=== PATIENT | female | born 1985 | race Caucasian/White ===

== ENCOUNTER 2016-09-01 21:27 | Emergency (ER) | payer SELFPAY ==
[2016-09-01 21:40] VITALS: TEMP 97.9
[2016-09-01] MEDS ORDERED: Sodium Chloride 0.9% 1,000 ML IV ONE (21:55)
[2016-09-01] MEDS ORDERED: Sodium Chloride 0.9% 1,000 ML ONE (22:03)
[2016-09-01 22:24] LABS: BASO % 0.4 % (0.0-2.0); EOS # 0.2 K/uL (0.0-0.7); EOS % 1.9 % (0.0-4.0); HEMATOCRIT 43.7 % (34.0-47.0); LYMPH # 4.3 K/uL (1.0-4.3); LYMPH % 46.7 % (20.0-40.0); MEAN CELL VOLUME 85.5 fL (81.0-99.0); MEAN CORPUSCULAR HEMOGLOBIN 28.5 pg (27.0-31.0); MEAN CORPUSCULAR HGB CONC 33.4 g/dL (33.0-37.0); MEAN PLATELET VOLUME 9.6 fL (7.2-11.7); MONO # 0.6 K/uL (0.0-0.8); MONO % 6.6 % (0.0-10.0); RED CELL DISTRIBUTION WIDTH 13.6 % (11.5-14.5); WHITE BLOOD COUNT 9.1 K/uL (4.8-10.8)
[2016-09-01 22:26] VITALS: PULSE 60; RESP 21; O2SAT 100
[2016-09-01 22:26] LABS: RBC URINE 2 /hpf (0-3); URINE BACTERIA RARE (<OCC); URINE BILIRUBIN NEGATIVE (NEGATIVE); URINE COLOR Yellow (YELLOW); URINE GLUCOSE (UA) NORMAL (Normal); URINE KETONE NEGATIVE (NEGATIVE); URINE LEUKOCYTE ESTERASE NEG Leu/uL (Negative); URINE PROTEIN NEGATIVE (NEGATIVE); URINE UROBILINOGEN NORMAL mg/dL (0.2-1.0); WBC URINE 1 /hpf (0-5)
[2016-09-01 22:27] LABS: URINE BLOOD NEGATIVE (NEGATIVE)
[2016-09-01 22:29] LABS: CHLORIDE 107 mmol/L (98-107)
[2016-09-01 22:30] LABS: POTASSIUM 3.6 mmol/L (3.6-5.2); SODIUM 139 mmol/L (132-148)
[2016-09-01 22:32] LABS: ALB/GLOB RATIO 1.4 (1.0-2.1); AST/SGOT 20 U/L (14-36); BILIRUBIN,TOTAL 0.5 mg/dL (0.2-1.3); BLOOD UREA NITROGEN 7 mg/dL (7-17); CARBON DIOXIDE 21 mmol/L (22-30); GFR AFRICAN-AMERICAN > 60; TOTAL PROTEIN 7.4 g/dL (6.3-8.3)
[2016-09-01 22:33] LABS: ALKALINE PHOSPHATASE 62 U/L (38-126); ALT/SGPT 21 U/L (9-52); CALCIUM 9.4 mg/dl (8.6-10.4); GLUCOSE,RANDOM 87 mg/dL (65-105)
[2016-09-01] MEDS ORDERED: Alum-Mag Hydrox-Simethicone Susp (30 mL) PO STA (22:35)
[2016-09-01] MEDS ORDERED: Aluminum Hydroxide/Magnesium Hydroxide Susp (30 mL) ONE (22:41)
--- NOTE | 2016-09-01 23:25 | C.PDOC ---
Time Seen by Provider: 09/01/16 21:47 Chief Complaint (Nursing): Abdominal Pain History Per: Patient Onset/Duration Of Symptoms: Hrs Current Symptoms Are (Timing): Still Present Severity: Moderate Location Of Pain/Discomfort: Epigastric Quality Of Discomfort: Unable To Describe, "Pain" Alleviating Factors: None Last Bowel Movement: Today Additional History Per: Prior Records Abnormal Vaginal Bleeding: No Past Medical History Reviewed: Historical Data, Nursing Documentation, Vital Signs Vital Signs: Last Vital Signs Temp 97.9 F 09/01/16 21:38 Pulse 60 09/01/16 22:24 Resp 21 09/01/16 22:24 BP 109/68 09/01/16 22:24 Pulse Ox 100 09/01/16 22:24 - Medical History PMH: Gastritis Surgical History: No Surg Hx Family History: States: Unknown Family Hx - Social History Hx Tobacco Use: No Hx Alcohol Use: No Hx Substance Use: No - Immunization History Hx Tetanus Toxoid Vaccination: No Hx Influenza Vaccination: No Hx Pneumococcal Vaccination: No Review Of Systems Except As Marked, All Systems Reviewed And Found Negative. Constitutional: Negative for: Fever, Weakness Cardiovascular: Negative for: Chest Pain Respiratory: Negative for: Shortness of Breath Gastrointestinal: Positive for: Abdominal Pain. Negative for: Vomiting, Diarrhea, Melena, Hematochezia, Hematemesis Genitourinary: Negative for: Dysuria Musculoskeletal: Negative for: Neck Pain Skin: Negative for: Rash Neurological: Negative for: Weakness, Numbness, Seizures, Altered Mental Status Physical Exam - Physical Exam Appears: Non-toxic, No Acute Distress Skin: Normal Color, Warm, Dry, No Rash Head: Atraumatic, Normacephalic Eye(s): bilateral: PERRL, EOMI Neck: Normal ROM, Supple Cardiovascular: Rhythm Regular Respiratory: Normal Breath Sounds, No Accessory Muscle Use Gastrointestinal/Abdominal: Soft, Tenderness (epigastric), No Distention, No Guarding, No Rebound Back: No CVA Tenderness Extremity: Normal ROM Neurological/Psych: Oriented x3, Normal Motor, Normal Sensation ED Course And Treatment - Laboratory Results Result Diagrams: 09/01/16 22:18 09/01/16 22:18 Lab Interpretation: No Acute Changes Urine POC: Negative O2 Sat by Pulse Oximetry: 100 Pulse Ox Interpretation: Normal Progress - Interventions Interventions:: Observation, Intravenous fluid - Medications Administered Oral: Antacid Intravenous: Antiemetic, H-2 sho - Data Reviewed Data Reviewed: Lab, Old records - Patient Status Patient status: Completely improved - Continuity of Care Discussed patient case with:: Patient, ED Nurse - Patient Plan Patient Plan: Discharge, F/U with PCP Disposition Counseled Patient/Family Regarding: Studies Performed, Diagnosis, Need For Followup, Rx Given - Disposition Referrals: [facility] [Outside] Disposition: HOME/ ROUTINE Disposition Time: 23:24 Condition: IMPROVED Additional Instructions: Follow up in the clinic for further evaluation and treatment. Return to the ER if you develop fever, vomiting, worsening of symptoms or if you have any other concerns. Prescriptions: Pantoprazole Sodium [Protonix] 40 mg PO DAILY #14 ect Instructions: Gastritis (ED) - Clinical Impression Clinical Impression: Abdominal pain
[2016-09-01 23:31] VITALS: BP 102/68
== END 2016-09-01 23:29 | disposition home or self-care (01) ==
LOC: C.ER 21:27
DX: R10.9 Unspecified abdominal pain (principal)
CPT/HCPCS: 80053; 81001; 83690; 84703; 85025; 96361; 96374; 96375; 99285; C9113; J2765; J7040

== ENCOUNTER 2017-06-06 10:58 | Emergency (ER) | payer OTHER ==
[2017-06-06] MEDS ORDERED: Sodium Chloride 0.9% 1,000 ML IV ONE (11:36)
--- NOTE | 2017-06-06 11:54 | C.PDOC ---
History Of Present Illness 31 y/o female , LNMP 12?, 13 wks , presents to ED for evaluation of diffuse low abdominal pressure pain since this morning associated with nausea and x1 episode of non-bilious vomiting. Patient admits, (+) pre rolando care for current , no abnormalities. Patient admits to some discomfort when urinating and low back pain since today AM. Otherwise, pt denies fever, chills, recent illness, sore throat, drooling, dysphagia, dyspnea , sob, chest pain, diarrhea, hematuria, vaginal bleeding or discharge. Ambulate to Ed, appears in some pain. Time Seen by Provider: 06/06/17 11:39 Chief Complaint (Nursing): Female Genitourinary History Per: Patient History/Exam Limitations: no limitations Onset/Duration Of Symptoms: Hrs Current Symptoms Are (Timing): Still Present Quality Of Discomfort: Pressure, "Pain" Associated Symptoms: Nausea, Vomiting, Urinary Symptoms. denies: Fever, Chills , Diarrhea Past Medical History Reviewed: Historical Data, Nursing Documentation, Vital Signs Vital Signs: Last Vital Signs Temp 98.2 F 06/06/17 11:18 Pulse 101 H 06/06/17 11:18 Resp 20 06/06/17 11:18 BP 121/79 06/06/17 11:18 Pulse Ox 96 06/06/17 14:18 - Medical History PMH: Gastritis Surgical History: No Surg Hx Family History: States: No Known Family Hx - Social History Hx Tobacco Use: No Hx Alcohol Use: No Hx Substance Use: No - Immunization History Hx Tetanus Toxoid Vaccination: No Hx Influenza Vaccination: No Hx Pneumococcal Vaccination: No Review Of Systems Constitutional: Negative for: Fever, Chills Cardiovascular: Negative for: Chest Pain Respiratory: Negative for: Shortness of Breath Gastrointestinal: Positive for: Nausea, Vomiting, Abdominal Pain Genitourinary: Negative for: Dysuria, Hematuria, Vaginal Discharge, Vaginal Bleeding Skin: Negative for: Rash Physical Exam - Physical Exam Appears: Non-toxic, No Acute Distress Skin: Warm, Dry, No Rash Head: Atraumatic, Normacephalic Oral Mucosa: Moist Neck: Normal ROM, Supple Cardiovascular: Rhythm Regular Respiratory: Normal Breath Sounds, No Rales, No Rhonchi, No Wheezing Gastrointestinal/Abdominal: Soft, No Tenderness, No Guarding, No Rebound Back: No CVA Tenderness Extremity: Normal ROM, Capillary Refill (<2 seconds) Neurological/Psych: Oriented x3, Normal Speech, Normal Cognition ED Course And Treatment - Laboratory Results Result Diagrams: 06/06/17 12:05 06/06/17 12:05 Lab Interpretation: No Acute Changes Urine POC: Positive O2 Sat by Pulse Oximetry: 96 (RA) Pulse Ox Interpretation: Normal - CT Scan/US US transvaginal Other Rad Studies (CT/US): Radiology Report Reviewed CT/US Interpretation: Report Date : 06/06/2017 13:37:13. My Comment : . PROCEDURE: OB Pelvic Ultrasound. HISTORY: /bleeding. COMPARISON: None available. FINDINGS: UTERUS: Single Live intrauterine gestation. CRL equivalent to 13 weeks 2 days gestatioin. Fetus in breech presentation. Posterior placenta noted. age (Ultrasound estimated): 13 weeks 2 days. Date of delivery (Ultrasound estimated) : 12/10/2017. Heart rate: 161 bpm. [place]-gestational hemorrhage: Small subchorionic hemorrhage, measuring approximately 0.8 x 2.8 x 2.4 cm. CERVIX: Long and closed. No cervical abnormality seen. RIGHT OVARY: Measures 3.7 x 2.4 x 3.9 cm. No mass. Normal flow. LEFT OVARY: Measures 3.2 x 2.5 x 3.8 cm. No mass. Normal flow. FREE FLUID: None. OTHER FINDINGS: None. IMPRESSION: Single live intrauterine gestation of approximately 13 weeks 2 days. heart rate 161. Breech presentation. Posterior placenta. Small subchorionic hemorrhage. Cervix long and closed. Progress Note: At 13:02, pt still c/o mod diffuse lower abd. pain. Risk vs benefits of pain medictaion in discussed with pt. Pt was given tylenol without improveemnt in pain. Pt is asking for " stronger medication". Morphine 2 mg IV order per pt permission. Blood work review and appears normal. UA (+) UTI. US results review and c/w single IUP, 13 wks, (+) HR, (-) acute findings. Beta quant c/w EGA. Results review and discussed with patient. On re-eval, pt is afebrile, hemodynamicaly stable. Non-toxic. AMbulatory in ED with stable gait. ENT: no acute findings. Lungs: CTA B/L, BS equal B/L. Abd: benign. back: (-) CVA tenderness. Pt has clinical findings c/ w lower abdominal pain r/o UTI, r/o threated miscarriage. Pt advised and ref. to f/u with OB ib 2-3 days for re-eavl. return if any new changes. Disposition Counseled Patient/Family Regarding: Studies Performed, Diagnosis, Need For Followup, Rx Given - [facility]position [facility] Disposition: HOME/ ROUTINE Disposition Time: 13:35 Condition: STABLE Additional Instructions: PELVIC REST, AVOID SEXUAL ACTIVITY FOR 1 WEEK TAKE MEDICATION PRESCRIBED FOLLOW UP WITH OB IN 2 DAYS FOR RE-EVALUATION. RETURN TO ed IF ANY WORSENING OR NEW CHANGES. Prescriptions: Doxylamine Succinate [Wal-Deshaun] 25 mg PO BID #7 tablet Nitrofurantoin Macrocrystals [Macrobid] 1 cap PO BID #14 cap Instructions: Threatened Miscarriage, Urinary Tract Infection, Adult (DC) Forms: [employer] (Liberian) Print Language: SWEDISH - Clinical Impression Clinical Impression: UTI (lower urinary tract infection), Threatened - PA / BIOLOGY INSTRUCTOR / Resident Statement MD/DO has reviewed & agrees with the documentation as recorded. - Scribe Statement The provider has reviewed the documentation as recorded by the Cassandra Oconnell All medical record entries made by the Cassandra were at my direction and personally dictated by me. I have reviewed the chart and agree that the record accurately reflects my personal performance of the history, physical exam, medical decision making, and the department course for this patient. I have also personally directed, reviewed, and agree with the discharge instructions and disposition.
[2017-06-06 12:18] LABS: BASO % 0.4 % (0.0-2.0); EOS # 0.1 K/uL (0.0-0.7); HEMOGLOBIN 13.9 g/dL (11.0-16.0); LYMPH # 3.6 K/uL (1.0-4.3); LYMPH % 28.3 % (20.0-40.0); MEAN CELL VOLUME 86.4 fL (81.0-99.0); MEAN CORPUSCULAR HEMOGLOBIN 29.2 pg (27.0-31.0); MEAN CORPUSCULAR HGB CONC 33.8 g/dL (33.0-37.0); MEAN PLATELET VOLUME 9.2 fL (7.2-11.7); MONO # 0.7 K/uL (0.0-0.8); MONO % 5.2 % (0.0-10.0); NEUT # 8.2 K/uL (1.8-7.0); NEUT % 65.1 % (50.0-75.0); RBC 4.75 Mil/uL (3.80-5.20); WHITE BLOOD COUNT 12.6 K/uL (4.8-10.8)
[2017-06-06 12:25] LABS: HCG,QUALITATIVE URINE POSITIVE (NEGATIVE)
[2017-06-06 12:31] LABS: URINE BILIRUBIN NEGATIVE (NEGATIVE); URINE BLOOD 3+ (NEGATIVE); URINE CLARITY Hazy (Clear); URINE COLOR Yellow (YELLOW); URINE GLUCOSE (UA) 1+ mg/dL (Normal); URINE LEUKOCYTE ESTERASE 3+ Leu/uL (Negative); URINE PROTEIN 2+ mg/dL (NEGATIVE); URINE UROBILINOGEN NORMAL mg/dL (0.2-1.0)
[2017-06-06 12:36] LABS: ALB/GLOB RATIO 1.1 (1.0-2.1); ALBUMIN 3.9 g/dL (3.5-5.0); ALT/SGPT 58 U/L (9-52); AST/SGOT 44 U/L (14-36); BLOOD UREA NITROGEN 4 mg/dL (7-17); CALCIUM 9.4 mg/dl (8.6-10.4); GFR AFRICAN-AMERICAN > 60; GFR NON-AFRICAN AMERICAN > 60
[2017-06-06 12:40] LABS: SQUAMOUS EPITHIAL 8 /hpf (0-5); URINE BACTERIA FEW (<OCC)
[2017-06-06] MEDS ORDERED: cefTRIAXone IV 1 gm in Dextros 50 ML IVPB ONE (13:02)
[2017-06-06] MEDS ORDERED: Sodium Chloride 0.9% 1,000 ML ONE (13:03)
--- NOTE | 2017-06-06 13:38 | US ---
PROCEDURE: OB Pelvic Ultrasound HISTORY: /bleeding COMPARISON: None available. FINDINGS: UTERUS: Single Live intrauterine gestation. CRL equivalent to 13 weeks 2 days gestatioin Fetus in breech presentation. Posterior placenta noted. age (Ultrasound estimated): 13 weeks 2 days Date of delivery (Ultrasound estimated) : 12/10/2017 Heart rate: 161 bpm. [place]-gestational hemorrhage: Small subchorionic hemorrhage, measuring approximately 0.8 x 2.8 x 2.4 cm. CERVIX: Long and closed. No cervical abnormality seen. RIGHT OVARY: Measures 3.7 x 2.4 x 3.9 cm. No mass. Normal flow. LEFT OVARY: Measures 3.2 x 2.5 x 3.8 cm. No mass. Normal flow. FREE FLUID: None. OTHER FINDINGS: None. IMPRESSION: Single live intrauterine gestation of approximately 13 weeks 2 days. heart rate 161. Breech presentation. Posterior placenta. Small subchorionic hemorrhage. Cervix long and closed.
[2017-06-06] MEDS ORDERED: Morphine 4 MG/ML VIAL ONE (14:45)
[2017-06-06 15:27] VITALS: BP 111/77; PULSE 96; RESP 15; TEMP 98; O2SAT 98
== END 2017-06-06 16:14 | disposition home or self-care (01) ==
LOC: C.ER 10:58
DX: O23.41 Unspecified infection of urinary tract in pregnancy, first trimester (principal); O20.0 Threatened abortion; Z3A.13 13 weeks gestation of pregnancy
CPT/HCPCS: 76801; 80053; 81001; 84702; 84703; 85025; 86850; 86900; 87086; 96365; 96375; 99284; J0696; J2270; J2405; J7040

== ENCOUNTER 2017-06-08 01:50 | Inpatient (IN) | payer OTHER ==
[2017-06-08] MEDS ORDERED: Sodium Chloride 0.9% 1,000 ML IV ONE (02:16)
[2017-06-08] MEDS ORDERED: Acetaminophen-Codeine 300/30 mg Tab PO STA (02:18)
[2017-06-08] MEDS ORDERED: Sodium Chloride 0.9% 1,000 ML ONE (02:22)
--- NOTE | 2017-06-08 02:32 | C.PDOC ---
History Of Present Illness 31 y/o female , LNMP 03/04/17 and 13 weeks , presents to ED for evaluation of right sided abdominal pain for 2 days associated with nausea. She states pain started in lower abdomen, but also is radiating to RUQ and back. Patient states she was seen in ED, and is taking antibiotic and Tylenol 650mg 2- 3 times a day without significant improvement. She reports no bowel movement for 3 days. Denies fever, chills, chest pain, hematuria, vaginal bleeding or discharge. Time Seen by Provider: 06/08/17 02:06 Chief Complaint (Nursing): Abdominal Pain History Per: Patient History/Exam Limitations: no limitations Onset/Duration Of Symptoms: Days (2) Current Symptoms Are (Timing): Still Present Location Of Pain/Discomfort: Other (Right sided) Radiation Of Pain To:: Back, Other (RUQ) Quality Of Discomfort: "Pain" Associated Symptoms: Nausea. denies: Fever, Chills, Chest Pain, Urinary Symptoms Exacerbating Factors: None Alleviating Factors: None Last Bowel Movement: Days Ago (3) Recent travel outside of the [place]: No Abnormal Vaginal Bleeding: No Last Menstral Period: 03/04/17 : 3 Para: 2 Past Medical History Reviewed: Historical Data, Nursing Documentation, Vital Signs Vital Signs: Last Vital Signs Temp 98.2 F 06/08/17 02:08 Pulse 73 06/08/17 06:40 Resp 24 06/08/17 06:40 BP 112/69 06/08/17 06:40 Pulse Ox 98 06/08/17 06:40 - Medical History PMH: Gastritis Family History: States: Unknown Family Hx - Social History Hx Tobacco Use: No Hx Alcohol Use: No Hx Substance Use: No - Immunization History Hx Tetanus Toxoid Vaccination: No Hx Influenza Vaccination: No Hx Pneumococcal Vaccination: No Review Of Systems Constitutional: Negative for: Fever, Chills Cardiovascular: Negative for: Chest Pain Gastrointestinal: Positive for: Nausea, Abdominal Pain (right sided radiates to RUQ and back), Other (no bowel movement for 3 days). Negative for: Vomiting Genitourinary: Negative for: Hematuria, Vaginal Discharge, Vaginal Bleeding Neurological: Negative for: Weakness, Numbness Physical Exam - Physical Exam Appears: Non-toxic, Other (Uncomfortable) Skin: Normal Color, Warm, Dry Head: Atraumatic, Normacephalic Eye(s): bilateral: Normal Inspection Oral Mucosa: Moist Neck: Supple Chest: Symmetrical, No Tenderness Cardiovascular: Rhythm Regular Respiratory: Normal Breath Sounds, No Decreased Breath Sounds, No Rales, No Rhonchi, No Wheezing Gastrointestinal/Abdominal: Soft, Tenderness (RUQ) Neurological/Psych: Oriented x3, Normal Speech, Normal Cognition ED Course And Treatment - Laboratory Results Result Diagrams: 06/08/17 02:45 06/08/17 02:45 Lab Interpretation: Abnormal O2 Sat by Pulse Oximetry: 99 (RA) Pulse Ox Interpretation: Normal - CT Scan/US 1st Trimester US Other Rad Studies (CT/US): Read By Radiologist, Radiology Report Reviewed CT/US Interpretation: EXAM: US First Trimester, Transabdominal. CLINICAL HISTORY: 31 years old, female; Pain; complicated by abdominal or pelvic pain; Upper; First. trimester; Gestational age or lmp: ; ; Additional info: Right side abd pain, preg, no. bleeding. TECHNIQUE: Real-time transabdominal obstetrical ultrasound of the maternal pelvis and a first trimester. with image documentation. COMPARISON: No relevant prior studies available. FINDINGS: Gestation: Single live intrauterine gestation. heart rate of 135 beats per minute. [place]-rump. length of 7.3 cm, correlating with gestational age of 13 weeks 3 days. Placenta /amniotic fluid: Posterior, low-lying placenta. No placental abruption. Normal amniotic fluid. Uterus/cervix: 1.3 x 0.6 x 1.9 cm collection along gestational sac. No cervical dilatation or. effacement. Ovaries: Normal ovaries. No adnexal masses. Free fluid: No significant free fluid. IMPRESSION: 1. Single live intrauterine gestation. [facility]. [facility]. Final Radiology Report [id number]. Name: YENNY KHALIL Age: 31Years F Date: 06/08/2017. SSN: [id number] : 1985. Study: US TRANSABD FIRST TRIMESTER FIRST GEST Requesting Physician: Leyla Uribe. Images: 58. Addl Studies: Provided Clinical History: right side abd pain, preg, no bleeding. CONFIDENTIALITY STATEMENT. This transmission is confidential and is intended to be a privileged communication. It is intended only for the use of the addressee. Access to this. message by anyone else is unauthorized. If you are not the intended recipient, any disclosure, copying, distribution or any action taken, or omitted to. be taken in reliance on it is prohibited and may be unlawful. If you received this communication in error, please notify us by telephone, so that return. of this document to us can be arranged. Page 2 of 2. 2. Subchorionic hemorrhage. 3. Incidental/non-acute findings are described above. Thank you for allowing us to participate in the care of your patient. Dictated and Authenticated by: Jack Garcia MD. 06/08/2017 5:35 AM Eastern Time ([place] & [place]) US Abdomen Other Rad Studies (CT/US): Read By Radiologist, Radiology Report Reviewed CT/US Interpretation: EXAM: US Abdomen Complete. CLINICAL HISTORY: 31 years old, female; Pain; Abdominal pain; Epigastric; ; Additional info: Ruq abd pain. TECHNIQUE: Real-time ultrasound of the abdomen (complete) with image documentation. COMPARISON: No relevant prior studies available. FINDINGS: Liver: Fatty infiltration. No mass. No intrahepatic ductal dilatation. Gallbladder: Gallstones. No wall thickening. No pericholecystic fluid. No sonographic Morales's. sign. Common bile duct: No dilatation. No stones. Pancreas: Unremarkable as visualized. Kidneys: Normal echogenicity. Mild pelvocaliectasis of RIGHT kidney. Mild pelviectasis of LEFT. kidney. Spleen: No splenomegaly. Aorta: Unremarkable. No aneurysm. Inferior vena cava : Unremarkable. Free fluid: No significant free fluid. IMPRESSION: 1. Cholelithiasis. 2. Mild pelvocaliectasis of RIGHT kidney. [facility]. [facility]. Final Radiology Report [id number]. Name: YENNY KHALIL Age: 31Years F Date: 06/08/2017. SSN: [id number] : . Study: US ABDOMEN COMPLETE Requesting Physician: Leyla Uribe. Images: 62. Addl Studies: Provided Clinical History : RUQ abd pain. CONFIDENTIALITY STATEMENT. This transmission is confidential and is intended to be a privileged communication. It is intended only for the use of the addressee. Access to this. message by anyone else is unauthorized. If you are not the intended recipient, any disclosure, copying, distribution or any action taken, or omitted to. be taken in reliance on it is prohibited and may be unlawful. If you received this communication in error, please notify us by telephone, so that return. of this document to us can be arranged. Page 2 of 2. 3. Mild pelviectasis of LEFT kidney. 4. Incidental/non-acute findings are described above. Thank you for allowing us to participate in the care of your patient. Dictated and Authenticated by: Jack Garcia MD. 06/08/2017 5: 38 AM Eastern Time ([place] & [place] Medical Decision Making Medical Decision Making: Impression: Abdominal pain Prior records reviewed patient seen in ED 06/06 with normal labs and US showed: Single live intrauterine gestation of approximately 13 weeks 2 days. heart rate 161. Breech presentation. Posterior placenta. Small subchorionic hemorrhage. Cervix long and closed. Plan: * Labs * US * IV NS, Tylenol #3 Progress: Labs show increase in WBC 14, LFTs, urine better, US shows Cholelithiasis Discussed case with ER attending who examined patient and agrees with treatment plan thus far, and to consult surgery Patient is still complaining of pain additional morphine ordered [address] Arambula Spoke with surgical services asst [facility] who will come to evaluate patient and wants patient admitted to medical service [address] Carranza who requests to speak specifically with surgeon before he will evaluate patient 06 spoke with OB yard person Dr Alcantara who will see patient as consult, and to admit to medical service. [address] Callejas to contact hospitalist. Dr Callejas spoke with hospitalist and discussed case. Dr Carranza insists to hear back from surgeon before admitting to his service, and conclude if patient is going for surgery 06 Dr Arambula calls ED and case was discussed including labs and US results. He states patient is not surgical case at this time. Recommends analgesics, observation, and will see as consult [address] Carranza who accepts patient to service Disposition - Disposition Disposition: HOSPITALIZED Disposition Time: 06:20 Condition: STABLE - POA Present On Arrival: None - Clinical Impression Clinical Impression: Cholelithiasis, and not yet delivered in second trimester - PA / STAGE SETTING PAINTER APPRENTICE / Resident Statement MD/DO has reviewed & agrees with the documentation as recorded. - Scribe Statement The provider has reviewed the documentation as recorded by the Scribe Kip Waldrop All medical record entries made by the Duaneibe were at my direction and personally dictated by me. I have reviewed the chart and agree that the record accurately reflects my personal performance of the history, physical exam, medical decision making, and the department course for this patient. I have also personally directed, reviewed, and agree with the discharge instructions and disposition. Decision To Admit - Pt Status Changed To: Hospital Disposition Of: Observation - . Bed Request Type: Regular Admitting Physician: Devan Carranza Patient Diagnosis: Cholelithiasis, and not yet delivered in second trimester
[2017-06-08 02:49] LABS: HCG,QUALITATIVE URINE POSITIVE (NEGATIVE)
[2017-06-08 02:50] LABS: BASO # 0.2 K/uL (0.0-0.2); BASO % 1.6 % (0.0-2.0); EOS # 0.1 K/uL (0.0-0.7); EOS % 0.4 % (0.0-4.0); HEMOGLOBIN 12.7 g/dL (11.0-16.0); LYMPH # 1.9 K/uL (1.0-4.3); LYMPH % 13.2 % (20.0-40.0); MEAN CORPUSCULAR HEMOGLOBIN 29.1 pg (27.0-31.0); MEAN CORPUSCULAR HGB CONC 33.9 g/dL (33.0-37.0); MEAN PLATELET VOLUME 9.2 fL (7.2-11.7); MONO % 7.2 % (0.0-10.0); NEUT # 11.2 K/uL (1.8-7.0); NEUT % 77.6 % (50.0-75.0); RBC 4.36 Mil/uL (3.80-5.20); RED CELL DISTRIBUTION WIDTH 13.7 % (11.5-14.5); WHITE BLOOD COUNT 14.4 K/uL (4.8-10.8)
[2017-06-08] MEDS ORDERED: Morphine 4 MG/ML VIAL ONE ×2 (02:53→05:50)
[2017-06-08 02:56] LABS: SQUAMOUS EPITHIAL 1 /hpf (0-5); URINE BILIRUBIN NEGATIVE (NEGATIVE); URINE BLOOD NEGATIVE (NEGATIVE); URINE CLARITY Hazy (Clear); URINE COLOR Yellow (YELLOW); URINE GLUCOSE (UA) NORMAL (Normal); URINE LEUKOCYTE ESTERASE NEG Leu/uL (Negative); URINE PROTEIN NEGATIVE (NEGATIVE); URINE UROBILINOGEN NORMAL mg/dL (0.2-1.0)
[2017-06-08 03:33] LABS: ALBUMIN 3.6 g/dL (3.5-5.0); ALT/SGPT 57 U/L (9-52); AMYLASE 83 U/L (30-110); AST/SGOT 33 U/L (14-36); BLOOD UREA NITROGEN 5 mg/dL (7-17); GFR AFRICAN-AMERICAN > 60; GFR NON-AFRICAN AMERICAN > 60; LIPASE 71 U/L (23-300)
--- NOTE | 2017-06-08 05:36 | US ---
EXAM: US First Trimester, Transabdominal CLINICAL HISTORY: 31 years old, female; Pain; complicated by abdominal or pelvic pain; Upper; First trimester; Gestational age or lmp: 03/04/2017; ; Additional info: Right side abd pain, preg, no bleeding TECHNIQUE: Real-time transabdominal obstetrical ultrasound of the maternal pelvis and a first trimester with image documentation. COMPARISON: No relevant prior studies available. FINDINGS: Gestation: Single live intrauterine gestation. heart rate of 135 beats per minute. [place]-rump length of 7.3 cm, correlating with gestational age of 13 weeks 3 days. Placenta/amniotic fluid: Posterior, low-lying placenta. No placental abruption. Normal amniotic fluid. Uterus/cervix: 1.3 x 0.6 x 1.9 cm collection along gestational sac. No cervical dilatation or effacement. Ovaries: Normal ovaries. No adnexal masses. Free fluid: No significant free fluid. IMPRESSION: 1. Single live intrauterine gestation. 2. Subchorionic hemorrhage. 3. Incidental/non-acute findings are described above.
--- NOTE | 2017-06-08 05:38 | US ---
EXAM: US Abdomen Complete CLINICAL HISTORY: 31 years old, female; Pain; Abdominal pain; Epigastric; ; Additional info: Ruq abd pain TECHNIQUE: Real-time ultrasound of the abdomen (complete) with image documentation. COMPARISON: No relevant prior studies available. FINDINGS: Liver: Fatty infiltration. No mass. No intrahepatic ductal dilatation. Gallbladder: Gallstones. No wall thickening. No pericholecystic fluid. No sonographic Morales's sign. Common bile duct: No dilatation. No stones. Pancreas: Unremarkable as visualized. Kidneys: Normal echogenicity. Mild pelvocaliectasis of RIGHT kidney. Mild pelviectasis of LEFT kidney. Spleen: No splenomegaly. Aorta: Unremarkable. No aneurysm. Inferior vena cava: Unremarkable. Free fluid: No significant free fluid. IMPRESSION: 1. Cholelithiasis. 2. Mild pelvocaliectasis of RIGHT kidney. 3. Mild pelviectasis of LEFT kidney. 4. Incidental/non-acute findings are described above.
--- NOTE | 2017-06-08 06:32 | CP.PCM.CON ---
Addendum entered and electronically signed by Prudencio Asencio DO 06/08/17 06: 40: changed to Zosyn since unasyn is not formulary here GI consult with Dr Pandya as per Dr Arambula Original Note: <ElifPrudencio Azeem - Last Filed: 06/08/17 06:29> History of Present Illness - History of Present Illness History of Present Illness: General Surgery: Dr Arambula Pt is a 31F, 13 weeks , with PMH of gastritis. Pt presents to ED with 2 days of RUQ pain accompanied by nausea and vomiting. Pt states pain has been mainly RUQ, but radiates to the back and right shoulder. Her emesis has been yellow in color, with minimal streaks of blood. Denies any fevers, chills, changes in bowel habits, dysuria, sob or chest pain. Her has been otherwise uncomplicated. Pt reports has been taking vitamins. PMH: gastritis PSH: none Social: no EtOH, no tobacco Review of Systems - Review of Systems All systems: reviewed and no additional remarkable complaints except (as per hpi ) Past Patient History - Infectious Disease Hx of Infectious Diseases: None - Past Social History Smoking Status: Never Smoked - CARDIAC Hx Cardiac Disorders: No - PULMONARY Hx Respiratory Disorders: No - NEUROLOGICAL Hx Neurological Disorder: No - HEENT Hx HEENT Problems: No - RENAL Hx Chronic Kidney Disease: No - ENDOCRINE/METABOLIC Hx Endocrine Disorders: No - HEMATOLOGICAL/ONCOLOGICAL Hx Blood Disorders: No Hx AIDS: No - INTEGUMENTARY Hx Dermatological Problems: No - MUSCULOSKELETAL/RHEUMATOLOGICAL Hx Musculoskeletal Disorders: No - GASTROINTESTINAL Hx Gastritis: Yes - GENITOURINARY/GYNECOLOGICAL Hx Genitourinary Disorders: No - PSYCHIATRIC Hx Substance Use: No - SURGICAL HISTORY Hx Surgeries: No - ANESTHESIA Hx Anesthesia: No Meds Allergies/Adverse Reactions: Allergies Allergy/AdvReac Type Severity Reaction Status Date / Time No Known Allergies Allergy Verified 06/06/17 11:21 Physical Exam - Constitutional Appears: Non-toxic, No Acute Distress - Eye Exam Eye Exam: Normal appearance - ENT Exam ENT Exam: Mucous Membranes Moist - Respiratory Exam Respiratory Exam: absent: Accessory Muscle Use, Respiratory Distress - Cardiovascular Exam Cardiovascular Exam: REGULAR RHYTHM - GI/Abdominal Exam GI & Abdominal Exam: Soft, Tenderness (RUQ > RLQ). absent: Distended, Firm, Guarding, Hernia - Neurological Exam Neurological exam: Alert, Oriented x3 - Psychiatric Exam Psychiatric exam: Normal Affect, Normal Mood Results - Vital Signs Recent Vital Signs: Last Vital Signs Temp 98.2 F 06/08/17 02:08 Pulse 73 06/08/17 05:45 Resp 24 06/08/17 05:45 BP 110/72 06/08/17 05:45 Pulse Ox 99 06/08/17 06:28 - Labs Result Diagrams: 06/08/17 02:45 06/08/17 02:45 Labs: Laboratory Results - last 24 hr 06/08/17 06/08/17 06/08/17 02:45 02:45 02:45 WBC 14.4 H RBC 4.36 Hgb 12.7 Hct 37.5 MCV 86.0 MCH 29.1 MCHC 33.9 RDW 13.7 Plt Count 214 MPV 9.2 Neut % (Auto) 77.6 H Lymph % (Auto) 13.2 L [place] % (Auto) 7.2 Eos % (Auto) 0.4 Baso % (Auto) 1.6 Neut # (Auto) 11.2 H Lymph # (Auto) 1.9 [place] # (Auto) 1.0 H Eos # (Auto) 0.1 Baso # (Auto) 0.2 Sodium 135 Potassium 3.2 L Chloride 101 Carbon Dioxide 23 Anion Gap 14 BUN 5 L Creatinine 0.6 L Est GFR ( Amer) > 60 Est GFR (Non-Af Amer) > 60 Random Glucose 101 Calcium 9.0 Total Bilirubin 0.4 AST 33 ALT 57 H Alkaline Phosphatase 49 Total Protein 7.0 Albumin 3.6 Globulin 3.4 Albumin/Globulin Ratio 1.0 Amylase 83 Lipase 71 Urine Color Yellow Urine Clarity Hazy Urine pH 6.0 Ur Specific [place] 1.014 Urine Protein Negative Urine Glucose (UA) Normal Urine Ketones Negative Urine Blood Negative Urine Nitrate Negative Urine Bilirubin Negative Urine Urobilinogen Normal Ur Leukocyte Esterase Neg Urine WBC (Auto) 1 Urine RBC (Auto) 2 Ur Squamous Epith Cells 1 Urine HCG, Qual Positive Assessment & Plan - Assessment and Plan (Free Text) Assessment: 31F 13wks with RUQ pain Plan: admit to medicine or OBGYN will treat conservatively unasyn NPO for now will d/w Dr Ralf Asencio, PGY3 <Imtiaz Arambula - Last Filed: 06/09/17 16:10> Meds - Medications Medications: Current Medications Famotidine (Pepcid) 20 mg IVP DAILY REPLACED BY [facility] Last Admin: 06/09/17 09:10 Dose: 20 mg Piperacillin Sod/Tazobactam Sod (Zosyn 2.25 Gm Iv Premix) 2.25 gm in 50 mls @ 100 mls/hr IVPB Q6H REPLACED BY [facility] PRN Reason: Protocol Last Admin: 06/09/17 12:14 Dose: 100 mls/hr Lactated Ringer's (Lactated Ringer's) 1,000 mls @ 100 mls/hr IV .Q10H REPLACED BY [facility] Last Admin: 06/09/17 13:01 Dose: Not Given Folic Acid 1 mg/ Sodium (Chloride) 100.2 mls @ 60 mls/hr IVPB DAILY REPLACED BY [facility] Last Admin: 06/09/17 09:42 Dose: 60 mls/hr Lactobacillus Acidophilus (Bacid Acidophilus) 1 cap PO BID REPLACED BY [facility] Last Admin: 06/09/17 09:10 Dose: 1 cap Morphine Sulfate (Morphine) 1 mg IV Q6 PRN PRN Reason: Pain, moderate (4-7) Last Admin: 06/09/17 01:46 Dose: 1 mg Morphine Sulfate (Morphine) 2 mg IV Q6 PRN PRN Reason: Pain, severe (8-10) Last Admin: 06/08/17 22:36 Dose: 2 mg Ondansetron HCl (Zofran Inj) 4 mg IVP Q6H PRN PRN Reason: Nausea/Vomiting Last Admin: 06/09/17 04:06 Dose: 4 mg Multivit/Folic Acid/Iron () 1 tab PO DAILY REPLACED BY [facility] Last Admin: 06/09/17 09:10 Dose: 1 tab Results - Vital Signs Recent Vital Signs: Last Vital Signs Temp 97.6 F 06/09/17 08:04 Pulse 69 06/09/17 08:04 Resp 20 06/09/17 08:04 BP 103/68 06/09/17 08:04 Pulse Ox 97 06/09/17 08:04 - Labs Result Diagrams: 06/09/17 08:17 06/09/17 08:17 Labs: Laboratory Results - last 24 hr 06/09/17 06/09/17 08:17 08:17 WBC 10.6 RBC 4.03 Hgb 12.1 Hct 34.8 MCV 86.5 MCH 30.0 MCHC 34.7 RDW 14.0 Plt Count 205 MPV 9.2 Neut % (Auto) 74.5 Lymph % (Auto) 17.4 L [place] % (Auto) 7.3 Eos % (Auto) 0.7 Baso % (Auto) 0.1 Neut # (Auto) 7.9 H Lymph # (Auto) 1.8 [place] # (Auto) 0.8 Eos # (Auto) 0.1 Baso # (Auto) 0.0 Sodium 135 Potassium 3.1 L Chloride 98 Carbon Dioxide 25 Anion Gap 15 BUN 6 L Creatinine 0.8 Est GFR ( Amer) > 60 Est GFR (Non-Af Amer) > 60 Random Glucose 73 Calcium 8.5 L Phosphorus 3.7 Magnesium 1.9 Total Bilirubin 1.4 H AST 34 ALT 46 Alkaline Phosphatase 55 Total Protein 6.5 Albumin 3.2 L Globulin 3.4 Albumin/Globulin Ratio 0.9 L Attending/Attestation - Attestation I have personally seen and examined this patient.: Yes I have fully participated in the care of the patient.: Yes I have reviewed all pertinent clinical information: Yes Notes (Text): Pt was seen and examined at bedside Agree with above note and assessment Pt with IUP 13 wk with abdominal Pain and Gallstones Right flank tenderness Labs and radiology reviewed Ass: IUP 13 week with Gallstones Plan : Get MRI of abdomen IV antibiotics c.w current mx Plan d/w pt in detail Risk and benefit explained in detail.
--- NOTE | 2017-06-08 07:31 | CP.PCM.CON ---
History of Present Illness - History of Present Illness History of Present Illness: 31yo lmp12/18 @ 13+wks by lmp confirmed by us today presents w/ c/o RUQ pain. Pt states pain begins in RUQ and radiates inferiorly. She states she has not eaten and had n/v throughout the day on . She states on Saturday she had 1 episode of emesis. She had initially presented to on and was advised she had a uti and sent home on rx. [facility] severity of [facility]. She has a h/o Gastritis and has been intermittently compliant with diet. She denies vag bleeding, cramping. She receives her pnc from [facility] and is taking pnv. pmhx:gastritis obhx: x2 nkda shx: denies etoh, illicit drugs or tobacco use medic: pnv pshx: denies Past Patient History - Infectious Disease Hx of Infectious Diseases: None - Past Social History Smoking Status: Never Smoked - CARDIAC Hx Cardiac Disorders: No - PULMONARY Hx Respiratory Disorders: No - NEUROLOGICAL Hx Neurological Disorder: No - HEENT Hx HEENT Problems: No - RENAL Hx Chronic Kidney Disease: No - ENDOCRINE/METABOLIC Hx Endocrine Disorders: No - HEMATOLOGICAL/ONCOLOGICAL Hx Blood Disorders: No Hx AIDS: No - INTEGUMENTARY Hx Dermatological Problems: No - MUSCULOSKELETAL/RHEUMATOLOGICAL Hx Musculoskeletal Disorders: No - GASTROINTESTINAL Hx Gastritis: Yes - GENITOURINARY/GYNECOLOGICAL Hx Genitourinary Disorders: No - PSYCHIATRIC Hx Substance Use: No - SURGICAL HISTORY Hx Surgeries: No - ANESTHESIA Hx Anesthesia: No Meds Allergies/Adverse Reactions: Allergies Allergy/AdvReac Type Severity Reaction Status Date / Time No Known Allergies Allergy Verified 06/06/17 11:21 - Medications Medications: Current Medications Piperacillin Sod/Tazobactam Sod (Zosyn 2.25 Gm Iv Premix) 2.25 gm in 50 mls @ 100 mls/hr IVPB Q6H [facility] PRN Reason: Protocol Lactated Ringer's (Lactated Ringer's) 1,000 mls @ 100 mls/hr IV .Q10H [facility] Physical Exam - Constitutional Appears: Non-toxic - Head Exam Head Exam: ATRAUMATIC, NORMOCEPHALIC - Respiratory Exam Respiratory Exam: NORMAL BREATHING PATTERN - GI/Abdominal Exam GI & Abdominal Exam: Soft, Tenderness (in ruq). absent: Distended Results - Vital Signs Recent Vital Signs: Last Vital Signs Temp 98.2 F 06/08/17 02:08 Pulse 73 06/08/17 06:40 Resp 24 06/08/17 06:40 BP 112/69 06/08/17 06:40 Pulse Ox 99 06/08/17 06:44 - Labs Result Diagrams: 06/08/17 02:45 06/08/17 02:45 Labs: Laboratory Results - last 24 hr 06/08/17 06/08/17 06/08/17 02:45 02:45 02:45 WBC 14.4 H RBC 4.36 Hgb 12.7 Hct 37.5 MCV 86.0 MCH 29.1 MCHC 33.9 RDW 13.7 Plt Count 214 MPV 9.2 Neut % (Auto) 77.6 H Lymph % (Auto) 13.2 L [place] % (Auto) 7.2 Eos % (Auto) 0.4 Baso % (Auto) 1.6 Neut # (Auto) 11.2 H Lymph # (Auto) 1.9 [place] # (Auto) 1.0 H Eos # (Auto) 0.1 Baso # (Auto) 0.2 Sodium 135 Potassium 3.2 L Chloride 101 Carbon Dioxide 23 Anion Gap 14 BUN 5 L Creatinine 0.6 L Est GFR ( Amer) > 60 Est GFR (Non-Af Amer) > 60 Random Glucose 101 Calcium 9.0 Total Bilirubin 0.4 AST 33 ALT 57 H Alkaline Phosphatase 49 Total Protein 7.0 Albumin 3.6 Globulin 3.4 Albumin/Globulin Ratio 1.0 Amylase 83 Lipase 71 Urine Color Yellow Urine Clarity Hazy Urine pH 6.0 Ur Specific [place] 1.014 Urine Protein Negative Urine Glucose (UA) Normal Urine Ketones Negative Urine Blood Negative Urine Nitrate Negative Urine Bilirubin Negative Urine Urobilinogen Normal Ur Leukocyte Esterase Neg Urine WBC (Auto) 1 Urine RBC (Auto) 2 Ur Squamous Epith Cells 1 Urine HCG, Qual Positive Assessment & Plan - Assessment and Plan (Free Text) Assessment: I: 13wk preg Cholelithiasis P: pt admitted to medical service. supportive care per medicine service pending pissible surgery on Unasyn, recommend probiotic
[2017-06-08] MEDS: Lactated Ringer's 1,000 ML IV SCH ×3 (07:49→22:35)
--- NOTE | 2017-06-08 08:08 | CP.PCM.HP ---
<Lyle Paulino - Last Filed: 06/08/17 18:19> History of Present Illness - History of Present Illness History of Present Illness: Code status: Full code, No advanced directives PMD: [facility]. [facility] Proxy: Leobardo Aviles (boyfriend) [phone] PGY-1 H&P for Dr. Kalee Quintanilla CC: Abdominal pain This is a 31 year old and 13 weeks female with PMHx gastritis who presents with RUQ abdominal pain. Patient states that the pain started on . It is primarily in the RUQ, but it radiates in a "c-like" pattern around the abdomen. Patient is unable to describe the quality of the pain, though she rates it as an 8/10. She has tried taking Tylenol without relief. Pain is exacerbated with movement. Patient also complaining of associated nausea /vomiting. She had multiple bouts of vomiting such that she does not remember the number. She does report that it is usually brown or yellow, but there has been some streaking of blood in the vomitus. Patient also complaining of constipation, stating that her last BM was 3 or 4 days ago. Patient was recently seen in the ED two days ago where she was found with UTI and prescribed 7 day course of Macrobid. PMHx: Gastritis PSHx: denies Allergies: NKDA Social: Denies tobacco, alcohol, drugs. Not currently employed. Lives with her son. Has 2 sons through vaginal births. Family Hx: Denies Home medications: vitamins Present on Admission - Present on Admission Any Indicators Present on Admission: No Review of Systems - Constitutional Constitutional: absent: Chills, Fever - EENT Eyes: absent: Change in Vision Ears: absent: Decreased Hearing Nose/Mouth/Throat: absent: Nasal Congestion - Cardiovascular Cardiovascular: absent: Chest Pain - Respiratory Respiratory: absent: Dyspnea - Gastrointestinal Gastrointestinal: Abdominal Pain, Constipation, Nausea, Vomiting. absent: Diarrhea - Genitourinary Genitourinary: Difficulty Urinating. absent: Dysuria - Musculoskeletal Musculoskeletal: absent: Back Pain - Integumentary Integumentary: absent: Rash - Neurological Neurological: absent: Weakness - Psychiatric Psychiatric: absent: Anxiety - Endocrine Endocrine: absent: Palpitations Past Patient History - Infectious Disease Hx of Infectious Diseases: None - Past Social History Smoking Status: Never Smoked - CARDIAC Hx Cardiac Disorders: No - PULMONARY Hx Respiratory Disorders: No - NEUROLOGICAL Hx Neurological Disorder: No - HEENT Hx HEENT Problems: No - RENAL Hx Chronic Kidney Disease: No - ENDOCRINE/METABOLIC Hx Endocrine Disorders: No - HEMATOLOGICAL/ONCOLOGICAL Hx Blood Disorders: No Hx AIDS: No - INTEGUMENTARY Hx Dermatological Problems: No - MUSCULOSKELETAL/RHEUMATOLOGICAL Hx Musculoskeletal Disorders: No - GASTROINTESTINAL Hx Gastritis: Yes - GENITOURINARY/GYNECOLOGICAL Hx Genitourinary Disorders: No - PSYCHIATRIC Hx Substance Use: No - SURGICAL HISTORY Hx Surgeries: No - ANESTHESIA Hx Anesthesia: No Meds Allergies/Adverse Reactions: Allergies Allergy/AdvReac Type Severity Reaction Status Date / Time No Known Allergies Allergy Verified 06/06/17 11:21 Physical Exam - Constitutional Appears: No Acute Distress - Head Exam Head Exam: ATRAUMATIC, NORMOCEPHALIC - Eye Exam Eye Exam: EOMI, PERRL - ENT Exam ENT Exam: Mucous Membranes Moist - Respiratory Exam Respiratory Exam: Clear to Auscultation Bilateral, NORMAL BREATHING PATTERN. absent: Rales, Rhonchi, Wheezes - Cardiovascular Exam Cardiovascular Exam: REGULAR RHYTHM, +S1, +S2 - GI/Abdominal Exam GI & Abdominal Exam: Diminished Bowel Sounds, Soft, Tenderness (RUQ exquisite tenderness) - Extremities Exam Extremities exam: Positive for: normal capillary refill, pedal pulses present. Negative for: pedal edema, tenderness - Neurological Exam Neurological exam: Alert, CN II-XII Intact, Oriented x3 - Psychiatric Exam Psychiatric exam: Normal Affect, Normal Mood - Skin Skin Exam: Dry, Warm Results - Vital Signs Recent Vital Signs: Last Vital Signs Temp 98.2 F 06/08/17 02:08 Pulse 73 06/08/17 06:40 Resp 24 06/08/17 06:40 BP 112/69 06/08/17 06:40 Pulse Ox 99 06/08/17 06:44 - Labs Result Diagrams: 06/08/17 02:45 06/08/17 02:45 Labs: Laboratory Results - last 24 hr 06/08/17 06/08/17 06/08/17 02:45 02:45 02:45 WBC 14.4 H RBC 4.36 Hgb 12.7 Hct 37.5 MCV 86.0 MCH 29.1 MCHC 33.9 RDW 13.7 Plt Count 214 MPV 9.2 Neut % (Auto) 77.6 H Lymph % (Auto) 13.2 L [place] % (Auto) 7.2 Eos % (Auto) 0.4 Baso % (Auto) 1.6 Neut # (Auto) 11.2 H Lymph # (Auto) 1.9 [place] # (Auto) 1.0 H Eos # (Auto) 0.1 Baso # (Auto) 0.2 Sodium 135 Potassium 3.2 L Chloride 101 Carbon Dioxide 23 Anion Gap 14 BUN 5 L Creatinine 0.6 L Est GFR ( Amer) > 60 Est GFR (Non-Af Amer) > 60 Random Glucose 101 Calcium 9.0 Total Bilirubin 0.4 AST 33 ALT 57 H Alkaline Phosphatase 49 Total Protein 7.0 Albumin 3.6 Globulin 3.4 Albumin/Globulin Ratio 1.0 Amylase 83 Lipase 71 Urine Color Yellow Urine Clarity Hazy Urine pH 6.0 Ur Specific [place] 1.014 Urine Protein Negative Urine Glucose (UA) Normal Urine Ketones Negative Urine Blood Negative Urine Nitrate Negative Urine Bilirubin Negative Urine Urobilinogen Normal Ur Leukocyte Esterase Neg Urine WBC (Auto) 1 Urine RBC (Auto) 2 Ur Squamous Epith Cells 1 Urine HCG, Qual Positive Assessment & Plan - Assessment and Plan (Free Text) Plan: RUQ abdominal pain in secondary to biliary colic? appendicitis? Follow up MRI abdomen with appendix protocol Surgery consult, Dr. Arambula, help appreciated internet marketer consult, Dr. Mcleod, help appreciated GI consult, Dr. 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 Patel, help appreciated UTI Based on urinalysis from 06/06/17. Will follow up result of urine culture from prior ER visit. Previously on Macrobid BID 7 day course and has taken it for 2 days now Now on Zosyn 2.25 Q6 Subchorionic hemorrhage Follow up OB recommendations Prophylaxis SCDs Bacid BID Pepcid 20 mg IV daily vitamins PO daily Folic acid IV daily Discussed with Dr. Kalee Paulino PGY-1 <Lane Quintanilla - Last Filed: 06/08/17 19:29> Results - Vital Signs Recent Vital Signs: Last Vital Signs Temp 98.3 F 06/08/17 08:11 Pulse 74 06/08/17 08:11 Resp 20 06/08/17 08:11 BP 119/76 06/08/17 08:11 Pulse Ox 99 06/08/17 08:11 - Labs Result Diagrams: 06/08/17 02:45 06/08/17 02:45 Labs: Laboratory Results - last 24 hr 06/08/17 06/08/17 06/08/17 02:45 02:45 02:45 WBC 14.4 H RBC 4.36 Hgb 12.7 Hct 37.5 MCV 86.0 MCH 29.1 MCHC 33.9 RDW 13.7 Plt Count 214 MPV 9.2 Neut % (Auto) 77.6 H Lymph % (Auto) 13.2 L [place] % (Auto) 7.2 Eos % (Auto) 0.4 Baso % (Auto) 1.6 Neut # (Auto) 11.2 H Lymph # (Auto) 1.9 [place] # (Auto) 1.0 H Eos # (Auto) 0.1 Baso # (Auto) 0.2 PT INR APTT Sodium 135 Potassium 3.2 L Chloride 101 Carbon Dioxide 23 Anion Gap 14 BUN 5 L Creatinine 0.6 L Est GFR ( Amer) > 60 Est GFR (Non-Af Amer) > 60 Random Glucose 101 Calcium 9.0 Total Bilirubin 0.4 AST 33 ALT 57 H Alkaline Phosphatase 49 Total Protein 7.0 Albumin 3.6 Globulin 3.4 Albumin/Globulin Ratio 1.0 Amylase 83 Lipase 71 Urine Color Yellow Urine Clarity Hazy Urine pH 6.0 Ur Specific [place] 1.014 Urine Protein Negative Urine Glucose (UA) Normal Urine Ketones Negative Urine Blood Negative Urine Nitrate Negative Urine Bilirubin Negative Urine Urobilinogen Normal Ur Leukocyte Esterase Neg Urine WBC (Auto) 1 Urine RBC (Auto) 2 Ur Squamous Epith Cells 1 Urine HCG, Qual Positive 06/08/17 11:03 WBC RBC Hgb Hct MCV MCH MCHC RDW Plt Count MPV Neut % (Auto) Lymph % (Auto) [place] % (Auto) Eos % (Auto) Baso % (Auto) Neut # (Auto) Lymph # (Auto) [place] # (Auto) Eos # (Auto) Baso # (Auto) PT 12.4 H INR 1.1 APTT 26 Sodium Potassium Chloride Carbon Dioxide Anion Gap BUN Creatinine Est GFR ( Amer) Est GFR (Non-Af Amer) Random Glucose Calcium Total Bilirubin AST ALT Alkaline Phosphatase Total Protein Albumin Globulin Albumin/Globulin Ratio Amylase Lipase Urine Color Urine Clarity Urine pH Ur Specific [place] Urine Protein Urine Glucose (UA) Urine Ketones Urine Blood Urine Nitrate Urine Bilirubin Urine Urobilinogen Ur Leukocyte Esterase Urine WBC (Auto) Urine RBC (Auto) Ur Squamous Epith Cells Urine HCG, Qual Attending/Attestation - Attestation I have personally seen and examined this patient.: Yes I have fully participated in the care of the patient.: Yes I have reviewed all pertinent clinical information: Yes Notes (Text): 06/08/17 19:29 Patient was seen and examined shortly after resident. History, Physical, Assessment and Plan were gone over with the resident. Lane Quintanilla D.O.
[2017-06-08] MEDS: Piperacill/Tazo 2.25gm in Dex 2.25 GM/50 ML BAG IVPB SCH ×4 (08:09→23:47)
[2017-06-08] MEDS ORDERED: Potassium Chloride 20 mEq/15 ml LIQ UD PO ONE (08:33)
[2017-06-08] MEDS: Prenatal Multivit/Folic Acid/Iron Tab PO SCH (09:36)
[2017-06-08] MEDS: Lactobacillus Acidophilus 500 MU Cap PO SCH ×2 (09:36→17:36)
[2017-06-08] MEDS: Morphine 4 MG/ML VIAL IV PRN ×4 (09:40→22:36)
--- NOTE | 2017-06-08 09:45 | CP.PCM.CON ---
<Laura Quintanilla - Last Filed: 06/08/17 09:47> History of Present Illness - History of Present Illness History of Present Illness: PGY4 GI Follow-up Carol Giron is a 13 weeks female with PMHx gastritis who presents with RUQ abdominal pain. Pt's onset of symptoms was 3 days ago . It is primarily in the RUQ, but it radiates to the back. She grade the pain 8/10. Denies any alleviating factors. She notes that moving in certain directions makes her symptoms worse. She has tried taking Tylenol without relief. Patient also complaining of associated nausea/vomiting. She had multiple bouts of vomiting such that she does not remember the number, but she notes mild streaking of blood x1 after repeat episodes of emesis. Patient also complaining of constipation, stating that her last BM was 3 or 4 days ago. Abd U/S revealed cholithiasis but normal GB wall thickening and CBD. Denies any fever, chills or diaphoresis. PMHx: Gastritis PSHx: denies Allergies: NKDA Social: Denies tobacco, alcohol, drugs. Not currently employed. Lives with her son. Has 2 sons through vaginal births. Family Hx: Denies END hx: EGD 14 years ago and was diagnosed with gastritis ROS: 12 point ROS conducted neg other than above Past Patient History - Infectious Disease Hx of Infectious Diseases: None - Past Social History Smoking Status: Never Smoked - CARDIAC Hx Cardiac Disorders: No - PULMONARY Hx Respiratory Disorders: No - NEUROLOGICAL Hx Neurological Disorder: No - HEENT Hx HEENT Problems: No - RENAL Hx Chronic Kidney Disease: No - ENDOCRINE/METABOLIC Hx Endocrine Disorders: No - HEMATOLOGICAL/ONCOLOGICAL Hx Blood Disorders: No Hx AIDS: No - INTEGUMENTARY Hx Dermatological Problems: No - MUSCULOSKELETAL/RHEUMATOLOGICAL Hx Musculoskeletal Disorders: No - GASTROINTESTINAL Hx Gastritis: Yes - GENITOURINARY/GYNECOLOGICAL Hx Genitourinary Disorders: No - PSYCHIATRIC Hx Substance Use: No - SURGICAL HISTORY Hx Surgeries: No - ANESTHESIA Hx Anesthesia: No Meds Allergies/Adverse Reactions: Allergies Allergy/AdvReac Type Severity Reaction Status Date / Time No Known Allergies Allergy Verified 06/06/17 11:21 - Medications Medications: Current Medications Famotidine (Pepcid) 20 mg IVP DAILY [facility] Piperacillin Sod/Tazobactam Sod (Zosyn 2.25 Gm Iv Premix) 2.25 gm in 50 mls @ 100 mls/hr IVPB Q6H [facility] PRN Reason: Protocol Last Admin: 06/08/17 08:09 Dose: 100 mls/hr Lactated Ringer's (Lactated Ringer's) 1,000 mls @ 100 mls/hr IV .Q10H [facility] Last Admin: 06/08/17 07:49 Dose: 100 mls/hr Folic Acid 1 mg/ Sodium (Chloride) 100.2 mls @ 60 mls/hr IVPB DAILY [facility] Last Admin: 06/08/17 09:37 Dose: 60 mls/hr Lactobacillus Acidophilus (Bacid Acidophilus) 1 cap PO BID [facility] Last Admin: 06/08/17 09:36 Dose: 1 cap Morphine Sulfate (Morphine) 1 mg IV Q6 PRN PRN Reason: Pain, moderate (4-7) Last Admin: 06/08/17 09:40 Dose: 1 mg Morphine Sulfate (Morphine) 2 mg IV Q6 PRN PRN Reason: Pain, severe (8-10) Ondansetron HCl (Zofran Inj) 4 mg IVP Q6H PRN PRN Reason: Nausea/Vomiting Last Admin: 06/08/17 09:38 Dose: 4 mg Multivit/Folic Acid/Iron () 1 tab PO DAILY [facility] Last Admin: 06/08/17 09:36 Dose: 1 tab Physical Exam - Constitutional Appears: Well, No Acute Distress - Head Exam Head Exam: ATRAUMATIC, NORMOCEPHALIC - Eye Exam Eye Exam: Normal appearance - ENT Exam ENT Exam: Mucous Membranes Moist, Normal Exam - Neck Exam Neck exam: Positive for: Normal Inspection - Respiratory Exam Respiratory Exam: Clear to Auscultation Bilateral, NORMAL BREATHING PATTERN. absent: Rales, Rhonchi, Wheezes, Respiratory Distress - Cardiovascular Exam Cardiovascular Exam: REGULAR RHYTHM, +S1, +S2 - GI/Abdominal Exam GI & Abdominal Exam: Soft, Tenderness (RUQ). absent: Distended, Firm, Guarding , Hernia - Extremities Exam Extremities exam: Negative for: joint swelling, pedal edema - Neurological Exam Neurological exam: Alert, Oriented x3 - Psychiatric Exam Psychiatric exam: Normal Affect, Normal Mood - Skin Skin Exam: Dry, Intact, Normal Color, Warm Results - Vital Signs Recent Vital Signs: Last Vital Signs Temp 98.2 F 06/08/17 02:08 Pulse 73 06/08/17 06:40 Resp 24 06/08/17 06:40 BP 112/69 06/08/17 06:40 Pulse Ox 99 06/08/17 06:44 - Labs Result Diagrams: 06/08/17 02:45 06/08/17 02:45 Labs: Laboratory Results - last 24 hr 06/08/17 06/08/17 06/08/17 02:45 02:45 02:45 WBC 14.4 H RBC 4.36 Hgb 12.7 Hct 37.5 MCV 86.0 MCH 29.1 MCHC 33.9 RDW 13.7 Plt Count 214 MPV 9.2 Neut % (Auto) 77.6 H Lymph % (Auto) 13.2 L [place] % (Auto) 7.2 Eos % (Auto) 0.4 Baso % (Auto) 1.6 Neut # (Auto) 11.2 H Lymph # (Auto) 1.9 [place] # (Auto) 1.0 H Eos # (Auto) 0.1 Baso # (Auto) 0.2 Sodium 135 Potassium 3.2 L Chloride 101 Carbon Dioxide 23 Anion Gap 14 BUN 5 L Creatinine 0.6 L Est GFR ( Amer) > 60 Est GFR (Non-Af Amer) > 60 Random Glucose 101 Calcium 9.0 Total Bilirubin 0.4 AST 33 ALT 57 H Alkaline Phosphatase 49 Total Protein 7.0 Albumin 3.6 Globulin 3.4 Albumin/Globulin Ratio 1.0 Amylase 83 Lipase 71 Urine Color Yellow Urine Clarity Hazy Urine pH 6.0 Ur Specific [place] 1.014 Urine Protein Negative Urine Glucose (UA) Normal Urine Ketones Negative Urine Blood Negative Urine Nitrate Negative Urine Bilirubin Negative Urine Urobilinogen Normal Ur Leukocyte Esterase Neg Urine WBC (Auto) 1 Urine RBC (Auto) 2 Ur Squamous Epith Cells 1 Urine HCG, Qual Positive Assessment & Plan - Assessment and Plan (Free Text) Assessment: Carol Giron is a 13 weeks 31F w/ a hx of gastritis who presents with abd pain. Cholithiasis Biliary colic Abd pain 2/2 above Plan: -CBD WNL and ALT slight elevated at 57 (rest LFTs are WNL) -continue antiemetics -continue IV hydration -Diet as tolerated from GI Standpoint -No plan for any GI intervention -Start miralax BID daily -May eventually benefit from Lap Radha -pain managment as per primary team D/W Dr. Pandya <Chaz Pandya Y - Last Filed: 06/08/17 10:13> Meds - Medications Medications: Current Medications Famotidine (Pepcid) 20 mg IVP DAILY [facility] Piperacillin Sod/Tazobactam Sod (Zosyn 2.25 Gm Iv Premix) 2.25 gm in 50 mls @ 100 mls/hr IVPB Q6H [facility] PRN Reason: Protocol Last Admin: 06/08/17 08:09 Dose: 100 mls/hr Lactated Ringer's (Lactated Ringer's) 1,000 mls @ 100 mls/hr IV .Q10H [facility] Last Admin: 06/08/17 07:49 Dose: 100 mls/hr Folic Acid 1 mg/ Sodium (Chloride) 100.2 mls @ 60 mls/hr IVPB DAILY [facility] Last Admin: 06/08/17 09:37 Dose: 60 mls/hr Lactobacillus Acidophilus (Bacid Acidophilus) 1 cap PO BID [facility] Last Admin: 06/08/17 09:36 Dose: 1 cap Morphine Sulfate (Morphine) 1 mg IV Q6 PRN PRN Reason: Pain, moderate (4-7) Last Admin: 06/08/17 09:40 Dose: 1 mg Morphine Sulfate (Morphine) 2 mg IV Q6 PRN PRN Reason: Pain, severe (8-10) Ondansetron HCl (Zofran Inj) 4 mg IVP Q6H PRN PRN Reason: Nausea/Vomiting Last Admin: 06/08/17 09:38 Dose: 4 mg Multivit/Folic Acid/Iron () 1 tab PO DAILY [facility] Last Admin: 06/08/17 09:36 Dose: 1 tab Results - Vital Signs Recent Vital Signs: Last Vital Signs Temp 98.2 F 06/08/17 02:08 Pulse 73 06/08/17 06:40 Resp 24 06/08/17 06:40 BP 112/69 06/08/17 06:40 Pulse Ox 99 06/08/17 06:44 - Labs Result Diagrams: 06/08/17 02:45 06/08/17 02:45 Labs: Laboratory Results - last 24 hr 06/08/17 06/08/17 06/08/17 02:45 02:45 02:45 WBC 14.4 H RBC 4.36 Hgb 12.7 Hct 37.5 MCV 86.0 MCH 29.1 MCHC 33.9 RDW 13.7 Plt Count 214 MPV 9.2 Neut % (Auto) 77.6 H Lymph % (Auto) 13.2 L [place] % (Auto) 7.2 Eos % (Auto) 0.4 Baso % (Auto) 1.6 Neut # (Auto) 11.2 H Lymph # (Auto) 1.9 [place] # (Auto) 1.0 H Eos # (Auto) 0.1 Baso # (Auto) 0.2 Sodium 135 Potassium 3.2 L Chloride 101 Carbon Dioxide 23 Anion Gap 14 BUN 5 L Creatinine 0.6 L Est GFR ( Amer) > 60 Est GFR (Non-Af Amer) > 60 Random Glucose 101 Calcium 9.0 Total Bilirubin 0.4 AST 33 ALT 57 H Alkaline Phosphatase 49 Total Protein 7.0 Albumin 3.6 Globulin 3.4 Albumin/Globulin Ratio 1.0 Amylase 83 Lipase 71 Urine Color Yellow Urine Clarity Hazy Urine pH 6.0 Ur Specific [place] 1.014 Urine Protein Negative Urine Glucose (UA) Normal Urine Ketones Negative Urine Blood Negative Urine Nitrate Negative Urine Bilirubin Negative Urine Urobilinogen Normal Ur Leukocyte Esterase Neg Urine WBC (Auto) 1 Urine RBC (Auto) 2 Ur Squamous Epith Cells 1 Urine HCG, Qual Positive Attending/Attestation - Attestation I have personally seen and examined this patient.: Yes I have fully participated in the care of the patient.: Yes I have reviewed all pertinent clinical information: Yes Notes (Text): 06/08/17 10:03 I have seen and examined patient with GI fellow. Agree with above documentation with the following additions. In brief, this is a 31 year old female without significant past medical history, currently , 13 weeks who presents to hospital with complaint of abdominal pain. She describes a sharp epigastric pain, 8/10 intensity, radiating to RUQ which started 3 days ago. Prior to this she was in usual state of health and denies similar prior episodes. The pain seems to be worsened by movement and food consumption. When the pain started, was accompanied with multiple episodes of vomiting. Her thus far has been otherwise non-complicated and she denies fever/ chills, weight loss, rectal bleeding, jaundice, pruritis, or change in bowel habits. She had an EGD 14 years ago in [facility] which showed gastritis as per patient, no prior colonoscopy. Review of vitals from today are normal. Additional physical examination: Abdomen: no palpable hepato/splenomegaly Obesity (BMI 30.6) Current state, 13 weeks Abdominal pain, potentially related to biliary colic Abdominal US reviewed by me showing cholelithiasis without associated GB changes , normal caliber CBD OB US reviewed showing live intrauterine gestation with HR of 135 - NPO - No clear indication for antibiotic therapy, would discontinue - MR imaging ordered by surgical team, follow up results - LFTs stable, continue to monitor - Ideally would favor deferring any surgical intervention until after of child, however if clinically necessary to perform lap cholecystectomy it can be done in 2nd trimester (which she currently is) using careful surgical precautions - No planned GI intervention at this time, will sign off case. Please reconsult as necessary, thank you.
[2017-06-08 11:18] LABS: INR 1.1; PROTHROMBIN TIME 12.4 SECONDS (9.7-12.2)
[2017-06-09] MEDS: Lactated Ringer's 1,000 ML IV SCH ×2 (01:00→13:01)
[2017-06-09] MEDS: Morphine 4 MG/ML VIAL IV PRN ×2 (01:46→21:59)
[2017-06-09] MEDS: Piperacill/Tazo 2.25gm in Dex 2.25 GM/50 ML BAG IVPB SCH ×3 (05:52→18:42)
[2017-06-09 08:07] VITALS: RESP 20
[2017-06-09 08:50] LABS: BASO % 0.1 % (0.0-2.0); EOS # 0.1 K/uL (0.0-0.7); EOS % 0.7 % (0.0-4.0); HEMOGLOBIN 12.1 g/dL (11.0-16.0); LYMPH # 1.8 K/uL (1.0-4.3); LYMPH % 17.4 % (20.0-40.0); MEAN CELL VOLUME 86.5 fL (81.0-99.0); MEAN CORPUSCULAR HGB CONC 34.7 g/dL (33.0-37.0); MEAN PLATELET VOLUME 9.2 fL (7.2-11.7); MONO # 0.8 K/uL (0.0-0.8); MONO % 7.3 % (0.0-10.0); NEUT # 7.9 K/uL (1.8-7.0); NEUT % 74.5 % (50.0-75.0); RBC 4.03 Mil/uL (3.80-5.20); WHITE BLOOD COUNT 10.6 K/uL (4.8-10.8)
[2017-06-09 08:52] LABS: ALB/GLOB RATIO 0.9 (1.0-2.1); ALBUMIN 3.2 g/dL (3.5-5.0); ALT/SGPT 46 U/L (9-52); AST/SGOT 34 U/L (14-36); BLOOD UREA NITROGEN 6 mg/dL (7-17); CALCIUM 8.5 mg/dl (8.6-10.4); GFR AFRICAN-AMERICAN > 60; GFR NON-AFRICAN AMERICAN > 60
[2017-06-09] MEDS: Lactobacillus Acidophilus 500 MU Cap PO SCH ×2 (09:10→18:42)
[2017-06-09] MEDS: Prenatal Multivit/Folic Acid/Iron Tab PO SCH (09:10)
--- NOTE | 2017-06-09 11:33 | CP.PCM.PN ---
<Lyle Paulino - Last Filed: 06/09/17 12:38> Subjective - Date & Time of Evaluation Date of Evaluation: 06/09/17 Time of Evaluation: 12:00 - Subjective Subjective: Medicine progress note for Dr. Kalee Quintanilla Patient seen and examined. Patient reports continued abdominal pain as well as constipation for the last 5 days. Patient states that the pain is an 8/10. Per nursing, patient has requested an increase in her pain medications; however, it was explained that it was safer for her to avoid the increase for both the safety of herself and her baby. Objective - Vital Signs/Intake and Output Vital Signs (last 24 hours): Temp Pulse Resp BP Pulse Ox 97.6 F 69 20 103/68 97 06/09/17 08:04 06/09/17 08:04 06/09/17 08:04 06/09/17 08:04 06/09/17 08:04 Intake and Output: 06/09/17 06/09/17 06:59 18:59 Intake Total 920 Balance 920 - Medications Medications: Current Medications Famotidine (Pepcid) 20 mg IVP DAILY [facility] Last Admin: 06/09/17 09:10 Dose: 20 mg Piperacillin Sod/Tazobactam Sod (Zosyn 2.25 Gm Iv Premix) 2.25 gm in 50 mls @ 100 mls/hr IVPB Q6H [facility] PRN Reason: Protocol Last Admin: 06/09/17 05:52 Dose: 100 mls/hr Lactated Ringer's (Lactated Ringer's) 1,000 mls @ 100 mls/hr IV .Q10H [facility] Last Admin: 06/09/17 01:00 Dose: Not Given Folic Acid 1 mg/ Sodium (Chloride) 100.2 mls @ 60 mls/hr IVPB DAILY [facility] Last Admin: 06/09/17 09:42 Dose: 60 mls/hr Potassium Chloride (Potassium Chloride 20 Meq/100 Ml) 20 meq in 100 mls @ 50 mls/hr IVPB ONCE ONE Stop: 06/09/17 13:30 Potassium Chloride (Potassium Chloride 20 Meq/100 Ml) 20 meq in 100 mls @ 50 mls/hr IVPB ONCE ONE Stop: 06/09/17 15:29 Lactobacillus Acidophilus (Bacid Acidophilus) 1 cap PO BID [facility] Last Admin: 06/09/17 09:10 Dose: 1 cap Morphine Sulfate (Morphine) 1 mg IV Q6 PRN PRN Reason: Pain, moderate (4-7) Last Admin: 06/09/17 01:46 Dose: 1 mg Morphine Sulfate (Morphine) 2 mg IV Q6 PRN PRN Reason: Pain, severe (8-10) Last Admin: 06/08/17 22:36 Dose: 2 mg Ondansetron HCl (Zofran Inj) 4 mg IVP Q6H PRN PRN Reason: Nausea/Vomiting Last Admin: 06/09/17 04:06 Dose: 4 mg Multivit/Folic Acid/Iron () 1 tab PO DAILY [facility] Last Admin: 06/09/17 09:10 Dose: 1 tab - Labs Labs: 06/09/17 08:17 06/09/17 08:17 PT 12.4 SECONDS (9.7-12.2) H 06/08/17 11:03 INR 1.1 06/08/17 11:03 APTT 26 SECONDS (21-34) 06/08/17 11:03 - Additional Findings Additional findings: - Constitutional Appears: No Acute Distress - Head Exam Head Exam: ATRAUMATIC, NORMOCEPHALIC - Eye Exam Eye Exam: EOMI, PERRL - ENT Exam ENT Exam: Mucous Membranes Moist - Respiratory Exam Respiratory Exam: Clear to Auscultation Bilateral, NORMAL BREATHING PATTERN. absent: Rales, Rhonchi, Wheezes - Cardiovascular Exam Cardiovascular Exam: REGULAR RHYTHM, +S1, +S2 - GI/Abdominal Exam GI & Abdominal Exam: Normal Bowel Sounds, Soft, Tenderness (RUQ tenderness is improved) - Extremities Exam Extremities exam: Positive for: normal capillary refill, pedal pulses present. Negative for: pedal edema, tenderness - Neurological Exam Neurological exam: Alert, CN II-XII Intact, Oriented x3 - Psychiatric Exam Psychiatric exam: Normal Affect, Normal Mood - Skin Skin Exam: Dry, Warm Assessment and Plan - Assessment and Plan (Free Text) Plan: RUQ abdominal pain in secondary to biliary colic? appendicitis? Follow up MRI abdomen with appendix protocol Surgery consult, Dr. Arambula, help appreciated financial institution president consult, Dr. Mcleod, help appreciated GI consult, Dr. 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 Patel, help appreciated Per conversation with Dr. Patel today, if pain is improved with IV antibiotics, patient may not need intervention. If not, a stent can be placed for her right sided hydronephrosis, but this would have to replaced with a new one in about 3 months. He will assess the patient and make his recommendations. UTI Based on urinalysis from 06/06/17. Urine culture from prior ER visit grew Corynebacterium species. Previously on Macrobid BID 7 day course and has taken it for 2 days now Now on Zosyn 2.25 Q6H Subchorionic hemorrhage Follow up OB recommendations Prophylaxis SCDs Bacid BID Pepcid 20 mg IV daily vitamins PO daily Folic acid IV daily Disposition: Awaiting Urology recommendations. Per surgery, conservative treatment for now. Discussed with Dr. Kalee Paulino PGY-1 <Lane Quintanilla - Last Filed: 06/09/17 15:34> Objective - Vital Signs/Intake and Output Vital Signs (last 24 hours): Temp Pulse Resp BP Pulse Ox 97.6 F 69 20 103/68 97 06/09/17 08:04 06/09/17 08:04 06/09/17 08:04 06/09/17 08:04 06/09/17 08:04 Intake and Output: 06/09/17 06/09/17 06:59 18:59 Intake Total 920 Balance 920 - Medications Medications: Current Medications Famotidine (Pepcid) 20 mg IVP DAILY [facility] Last Admin: 06/09/17 09:10 Dose: 20 mg Piperacillin Sod/Tazobactam Sod (Zosyn 2.25 Gm Iv Premix) 2.25 gm in 50 mls @ 100 mls/hr IVPB Q6H [facility] PRN Reason: Protocol Last Admin: 06/09/17 12:14 Dose: 100 mls/hr Lactated Ringer's (Lactated Ringer's) 1,000 mls @ 100 mls/hr IV .Q10H [facility] Last Admin: 06/09/17 13:01 Dose: Not Given Folic Acid 1 mg/ Sodium (Chloride) 100.2 mls @ 60 mls/hr IVPB DAILY [facility] Last Admin: 06/09/17 09:42 Dose: 60 mls/hr Lactobacillus Acidophilus (Bacid Acidophilus) 1 cap PO BID [facility] Last Admin: 06/09/17 09:10 Dose: 1 cap Morphine Sulfate (Morphine) 1 mg IV Q6 PRN PRN Reason: Pain, moderate (4-7) Last Admin: 06/09/17 01:46 Dose: 1 mg Morphine Sulfate (Morphine) 2 mg IV Q6 PRN PRN Reason: Pain, severe (8-10) Last Admin: 06/08/17 22:36 Dose: 2 mg Ondansetron HCl (Zofran Inj) 4 mg IVP Q6H PRN PRN Reason: Nausea/Vomiting Last Admin: 06/09/17 04:06 Dose: 4 mg Multivit/Folic Acid/Iron () 1 tab PO DAILY [facility] Last Admin: 06/09/17 09:10 Dose: 1 tab - Labs Labs: 06/09/17 08:17 06/09/17 08:17 PT 12.4 SECONDS (9.7-12.2) H 06/08/17 11:03 INR 1.1 06/08/17 11:03 APTT 26 SECONDS (21-34) 06/08/17 11:03 Attending/Attestation - Attestation I have personally seen and examined this patient.: Yes I have fully participated in the care of the patient.: Yes I have reviewed all pertinent clinical information, including history, physical exam and plan: Yes Notes (Text): 06/09/17 15:29 Patient was seen and examined with the resident. Patient looks more comfortable than she did yesterday although still photographer on exam. Abdominal exam now reveals tenderness to palpation in the RUQ only without rebound/guarding compared to yesterday when this involved the RLQ as well. Explained at length with Lao Translation provided by Alexandra (translation computer not available at the time of exam) that we were hesitant to give more pain medication due to addiction potential in patient as well as fetus F/U repeat Urine Culture F/U further recommmendations from Urology Dr. Peng once he sees the patient later today. If the pain persists, then speak with Surgery about possible Cholecystectomy for Biliary Colic although not recommended by them or GI at this time. Lane Quintanilla D.O.
--- NOTE | 2017-06-09 18:20 | CP.PCM.PN ---
<MaxTony bryan - Last Filed: 06/09/17 18:14> Subjective - Date & Time of Evaluation Date of Evaluation: 06/09/17 Time of Evaluation: 08:45 - Subjective Subjective: Surgery Progress note. Dr. Arambula Pt seen and examined at bedside. No acute events overnight. Patient still reports severe RUQ abdominal pain, Right flank pain and Right upper back pain. Denies fevers or chills. No N/V/D. No new complaints. Objective - Vital Signs/Intake and Output Vital Signs (last 24 hours): Temp Pulse Resp BP Pulse Ox 98.3 F 81 20 109/73 97 06/09/17 16:00 06/09/17 16:00 06/09/17 16:00 06/09/17 16:00 06/09/17 08:04 Intake and Output: 06/09/17 06/09/17 06:59 18:59 Intake Total 920 Balance 920 - Medications Medications: Current Medications Famotidine (Pepcid) 20 mg IVP DAILY [facility] Last Admin: 06/09/17 09:10 Dose: 20 mg Piperacillin Sod/Tazobactam Sod (Zosyn 2.25 Gm Iv Premix) 2.25 gm in 50 mls @ 100 mls/hr IVPB Q6H [facility] PRN Reason: Protocol Last Admin: 06/09/17 12:14 Dose: 100 mls/hr Lactated Ringer's (Lactated Ringer's) 1,000 mls @ 100 mls/hr IV .Q10H [facility] Last Admin: 06/09/17 13:01 Dose: Not Given Folic Acid 1 mg/ Sodium (Chloride) 100.2 mls @ 60 mls/hr IVPB DAILY [facility] Last Admin: 06/09/17 09:42 Dose: 60 mls/hr Lactobacillus Acidophilus (Bacid Acidophilus) 1 cap PO BID [facility] Last Admin: 06/09/17 09:10 Dose: 1 cap Morphine Sulfate (Morphine) 1 mg IV Q6 PRN PRN Reason: Pain, moderate (4-7) Last Admin: 06/09/17 01:46 Dose: 1 mg Morphine Sulfate (Morphine) 2 mg IV Q6 PRN PRN Reason: Pain, severe (8-10) Last Admin: 06/08/17 22:36 Dose: 2 mg Ondansetron HCl (Zofran Inj) 4 mg IVP Q6H PRN PRN Reason: Nausea/Vomiting Last Admin: 06/09/17 04:06 Dose: 4 mg Multivit/Folic Acid/Iron () 1 tab PO DAILY [facility] Last Admin: 06/09/17 09:10 Dose: 1 tab - Labs Labs: 06/09/17 08:17 06/09/17 08:17 PT 12.4 SECONDS (9.7-12.2) H 06/08/17 11:03 INR 1.1 06/08/17 11:03 APTT 26 SECONDS (21-34) 06/08/17 11:03 - Constitutional Appears: Well, Non-toxic, No Acute Distress - Head Exam Head Exam: ATRAUMATIC, NORMAL INSPECTION, NORMOCEPHALIC - Eye Exam Eye Exam: EOMI, Normal appearance - ENT Exam ENT Exam: Mucous Membranes Moist - Cardiovascular Exam Cardiovascular Exam: RRR. absent: JVD - GI/Abdominal Exam GI & Abdominal Exam: Soft. absent: Distended, Firm, Guarding, Rebound Additional comments: Tender to palpation RUQ, soft, no rebound, no guarding. Right sided CVA tenderness. - Neurological Exam Neurological Exam: Alert, Awake, Oriented x3 - Psychiatric Exam Psychiatric exam: Normal Affect, Normal Mood - Skin Skin Exam: Dry, Intact, Normal Color, Warm Assessment and Plan - Assessment and Plan (Free Text) Assessment: 31yo F 13wks with abdominal pain. r/o Acute gabriel Plan: - Continue Abx - IVF - consider MRCP tomorrow if LFTs continue to trend up - f/u GI recs - f/u Urology recs Further recs as per Dr. Ralf Santana PGY1 surgery pager: [phone] <Imtiaz Arambula - Last Filed: 06/10/17 21:25> Objective - Vital Signs/Intake and Output Vital Signs (last 24 hours): Temp Pulse Resp BP Pulse Ox 98.2 F 66 20 98/61 L 100 06/10/17 16:00 06/10/17 16:00 06/10/17 16:00 06/10/17 16:00 06/10/17 16:00 Intake and Output: 03/26/18 03/27/18 18:59 06:59 Intake Total 1300 Balance 1300 - Medications Medications: Current Medications Famotidine (Pepcid) 20 mg IVP DAILY [facility] Last Admin: 06/10/17 10:16 Dose: 20 mg Piperacillin Sod/Tazobactam Sod (Zosyn 2.25 Gm Iv Premix) 2.25 gm in 50 mls @ 100 mls/hr IVPB Q6H [facility] PRN Reason: Protocol Last Admin: 06/10/17 17:48 Dose: 100 mls/hr Lactated Ringer's (Lactated Ringer's) 1,000 mls @ 100 mls/hr IV .Q10H [facility] Last Admin: 06/10/17 09:17 Dose: Not Given Folic Acid 1 mg/ Sodium (Chloride) 100.2 mls @ 60 mls/hr IVPB DAILY [facility] Last Admin: 06/10/17 10:16 Dose: 60 mls/hr Lactobacillus Acidophilus (Bacid Acidophilus) 1 cap PO DAILY [facility] Morphine Sulfate (Morphine) 1 mg IV Q6 PRN PRN Reason: Pain, moderate (4-7) Last Admin: 06/09/17 01:46 Dose: 1 mg Morphine Sulfate (Morphine) 2 mg IV Q6 PRN PRN Reason: Pain, severe (8-10) Last Admin: 06/09/17 21:59 Dose: 2 mg Ondansetron HCl (Zofran Inj) 4 mg IVP Q6H PRN PRN Reason: Nausea/Vomiting Last Admin: 06/10/17 03:25 Dose: 4 mg Multivit/Folic Acid/Iron () 1 tab PO DAILY [facility] Last Admin: 06/10/17 10:16 Dose: 1 tab - Labs Labs: 06/10/17 07:14 06/10/17 07:14 PT 12.4 SECONDS (9.7-12.2) H 06/08/17 11:03 INR 1.1 06/08/17 11:03 APTT 26 SECONDS (21-34) 06/08/17 11:03 Attending/Attestation - Attestation I have personally seen and examined this patient.: Yes I have fully participated in the care of the patient.: Yes I have reviewed all pertinent clinical information, including history, physical exam and plan: Yes Notes (Text): Pt was seen and examine at bedside Agree with above note and assessment Pt is improving clinically Right flank and RUQ tenderness Tolerating diet Repeat LFTs in am IV antibiotics Plan d.w pt in detail Risk and benefit explained in detail.
--- NOTE | 2017-06-09 22:46 | CON ---
DATE: 06/09/2017 COMPREHENSIVE UROLOGY CONSULTATION TIME OF DICTATION: Roughly around 02:55 p.m. BRIEF HISTORY: The patient is a 31-year-old female who is 13 weeks with her third with two previous normal vaginal deliveries and a previous history of kidney stones and treatment for UTI one year ago. She currently presents with acute onset of right renal colic and right upper quadrant abdominal pain, which began on , 06/07/2017, and eventually requiring her to come to [facility]. Abdominal ultrasound showed mild right pelvicaliectasis and gallstones. An abdominal pelvic MRI was done, and the results were only reported to the director of outreach and the report is not available at this time. The patient continues to have persistent right upper quadrant pain and some right renal colic. Left side is completely normal at this time. She has no other prior medical history. SOCIAL HISTORY: She has no tobacco or alcohol use. ALLERGIES: SHE HAS NO KNOWN ALLERGIES TO ANY MEDICATIONS. The patient is currently being seen by General Surgery for evaluation of her gallstone pathology and also she is being seen by GI. PHYSICAL EXAMINATION: GENERAL: The patient is a slightly obese female, who is alert and oriented. VITAL SIGNS: On 06/09/2017 shows a temperature of 97.6, her pulse rate is 69, blood pressure is 103/68, respirations are 20, and O2 sat on room air is 97%. HEENT: Grossly within normal limits. Thyroid not palpable. NECK: Supple. ABDOMEN: Soft, not distended. She has no left CVA tenderness. No suprapubic tenderness. She does have some right CVA tenderness 1 to 2+, and she also has atleast 3+ right upper quadrant tenderness. LABORATORY EVALUATION: Her white count on 06/08/2017 was 14.4 with a hemoglobin of 12.7 and hematocrit of 37.5 with platelet count of 214,000. Today, 06/09/2017, CBC shows a WBC count of 10.6 with hemoglobin of 12.1, hematocrit of 34.8 with a platelet count of 205,000, on Zosyn IV every 6 hours. Her PT and PTT shows a PT of 12.4, INR of 1.1, and PTT of 26. A chem profile today shows a sodium of 135, potassium of 3.1, chloride 98, CO2 of 25, BUN and creatinine of 6 and 0.8 respectively with a GFR of greater than 60. Random glucose was 73. Calcium 8.5, phosphorus 3.7, magnesium 1.9, total bilirubin 1.4, AST 34, ALT 46, alk phos 55, and lipase on 06/08/2017 was 71. Urinalysis on 06/08/2017 showed the color was yellow, clarity was hazy, pH was 6.0, specific gravity was 1.014; protein, ketones, blood, nitrite, bilirubin, and leukocyte esterase were all negative. Glucose was normal. There was 1 wbc, 2 rbc's per high power field and HCG was positive. Urine was sent for culture and sensitivity. DIAGNOSTIC IMPRESSION FOR THIS PATIENT: 1. Right renal colic. 2. Right upper quadrant pain. 3. Gallstones. 4. Right pelvicaliectasis, which may be suggestive of urinary tract infection or pyelonephritis, possibly in the past. PLAN: Plan for this patient at this time will be to continue the patient on IV Zosyn. The patient needs to be checked out completely by General Surgery and GI, and if the pain persists, we will schedule the patient for cystoscopy and insertion of right ureteral stent. Pierre Patel MD MTDD
[2017-06-10] MEDS: Piperacill/Tazo 2.25gm in Dex 2.25 GM/50 ML BAG IVPB SCH ×5 (00:02→23:55)
[2017-06-10 07:37] LABS: BASO % 0.2 % (0.0-2.0); EOS # 0.1 K/uL (0.0-0.7); HEMOGLOBIN 11.7 g/dL (11.0-16.0); LYMPH # 1.9 K/uL (1.0-4.3); LYMPH % 20.4 % (20.0-40.0); MEAN CELL VOLUME 86.2 fL (81.0-99.0); MEAN CORPUSCULAR HEMOGLOBIN 29.5 pg (27.0-31.0); MEAN CORPUSCULAR HGB CONC 34.2 g/dL (33.0-37.0); MEAN PLATELET VOLUME 9.7 fL (7.2-11.7); MONO # 0.8 K/uL (0.0-0.8); MONO % 8.2 % (0.0-10.0); NEUT # 6.5 K/uL (1.8-7.0); NEUT % 70.2 % (50.0-75.0); RBC 3.98 Mil/uL (3.80-5.20); RED CELL DISTRIBUTION WIDTH 13.7 % (11.5-14.5); WHITE BLOOD COUNT 9.2 K/uL (4.8-10.8)
[2017-06-10 07:46] LABS: ALB/GLOB RATIO 0.9 (1.0-2.1); ALBUMIN 3.1 g/dL (3.5-5.0); ALT/SGPT 37 U/L (9-52); AST/SGOT 25 U/L (14-36); BLOOD UREA NITROGEN 6 mg/dL (7-17); CALCIUM 8.5 mg/dl (8.6-10.4); GFR AFRICAN-AMERICAN > 60; GFR NON-AFRICAN AMERICAN > 60
[2017-06-10] MEDS: Lactated Ringer's 1,000 ML IV SCH ×2 (09:17→18:45)
[2017-06-10] MEDS: Prenatal Multivit/Folic Acid/Iron Tab PO SCH (10:16)
[2017-06-10] MEDS: Lactobacillus Acidophilus 500 MU Cap PO SCH (10:16)
--- NOTE | 2017-06-10 12:01 | MRI ---
PROCEDURE: MRI Abdomen without contrast HISTORY: COMPARISON: Ultrasound abdomen 06/08/2017 TECHNIQUE: Multisequence, multiplanar MR images of the abdomen without gadolinium contrast enhancement. FINDINGS: LIVER: Normal size, contour and signal intensity. No mass. No intrahepatic biliary ductal dilatation. GALLBLADDER: Cholelithiasis. No mural thickening. No pericholecystic fluid. Normal caliber bile duct. SPLEEN: Normal size, contour and signal intensity. ADRENALS: Unremarkable. 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 The kidney is enlarged, measuring roughly 15 cm in the longitudinal plane. This corresponds to the finding on sonographic examination. There is mild right hydronephrosis. There is an extrarenal right renal pelvis. There is trace right perinephric fluid. This is suggestive of recent for this seal rupture. There is associated fluid inferior to the right kidney and in the cul-de-sac though this is a nonspecific finding. There is no left hydronephrosis. There is no renal mass. PANCREAS: Unremarkable. AORTA: No aneurysm. ASCITES: Trace ascites PERITONEUM: Trace ascites LYMPH NODES: Unremarkable. OTHER FINDINGS: , intrauterine noted. Posterior fundal placenta. Grossly normal amniotic fluid volume. IMPRESSION: Intrauterine . 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 No mass identified. No clear indication of right hydroureter. Cholelithiasis without evidence of cholecystitis. Preliminary interpretation of this examination was reported by [employer] at 2:41 p.m. on 06/08/2017. There is concurrence of this report with the preliminary interpretation.
--- NOTE | 2017-06-10 13:04 | CARD ---
APPROVED REPORT EKG Measurement Heart [id number] OR [id number] [id number] <Conclusion> Normal sinus rhythm Minimal voltage criteria for LVH, may be normal variant Borderline ECG
--- NOTE | 2017-06-10 13:59 | CP.PCM.PN ---
<Rasheeda Cabello V - Last Filed: 06/10/17 15:53> Objective - Vital Signs/Intake and Output Vital Signs (last 24 hours): Temp Pulse Resp BP Pulse Ox 98.6 F 69 20 94/63 L 99 06/10/17 07:53 06/10/17 07:53 06/10/17 07:53 06/10/17 07:53 06/10/17 08:43 Intake and Output: 06/10/17 06/10/17 06:59 18:59 Intake Total 1300 Balance 1300 - Medications Medications: Current Medications Famotidine (Pepcid) 20 mg IVP DAILY [facility] Last Admin: 06/10/17 10:16 Dose: 20 mg Piperacillin Sod/Tazobactam Sod (Zosyn 2.25 Gm Iv Premix) 2.25 gm in 50 mls @ 100 mls/hr IVPB Q6H [facility] PRN Reason: Protocol Last Admin: 06/10/17 13:38 Dose: 100 mls/hr Lactated Ringer's (Lactated Ringer's) 1,000 mls @ 100 mls/hr IV .Q10H [facility] Last Admin: 06/10/17 09:17 Dose: Not Given Folic Acid 1 mg/ Sodium (Chloride) 100.2 mls @ 60 mls/hr IVPB DAILY [facility] Last Admin: 06/10/17 10:16 Dose: 60 mls/hr Lactobacillus Acidophilus (Bacid Acidophilus) 1 cap PO BID [facility] Last Admin: 06/10/17 10:16 Dose: 1 cap Morphine Sulfate (Morphine) 1 mg IV Q6 PRN PRN Reason: Pain, moderate (4-7) Last Admin: 06/09/17 01:46 Dose: 1 mg Morphine Sulfate (Morphine) 2 mg IV Q6 PRN PRN Reason: Pain, severe (8-10) Last Admin: 06/09/17 21:59 Dose: 2 mg Ondansetron HCl (Zofran Inj) 4 mg IVP Q6H PRN PRN Reason: Nausea/Vomiting Last Admin: 06/10/17 03:25 Dose: 4 mg Multivit/Folic Acid/Iron () 1 tab PO DAILY [facility] Last Admin: 06/10/17 10:16 Dose: 1 tab - Labs Labs: 06/10/17 07:14 06/10/17 07:14 PT 12.4 SECONDS (9.7-12.2) H 06/08/17 11:03 INR 1.1 06/08/17 11:03 APTT 26 SECONDS (21-34) 06/08/17 11:03 Attending/Attestation - Attestation I have personally seen and examined this patient.: Yes I have fully participated in the care of the patient.: Yes I have reviewed all pertinent clinical information, including history, physical exam and plan: Yes Notes (Text): Patient seen, examined and case discussed with day-time resident. Patient reports abdominal pain is less, she does not feel nauseous except for early this morning. Patient is requesting for diet. Patient completed Abdominal MRI; official report available today. Per general surgery, no plans for surgical intervention given LFTs have normalized. Recommend for PO antibiotics. Resident Carla has spoken with urologist, Dr Arauz, no plans for intervention at this time. Patient reports she has follow-up with her OB-FRONT OF HOUSE MANAGER on the in regards to blood work completed. This is patient's third . Patient reports she was previously treated for UTI and took abx for about 2 days prior to coming to the hospital. Assessment/Plan 1) Abdominal Pain * General surgery (Dr. Arambula) rehabilitation technician-->help appreciated * OB-[employer] OF HOUSE MANAGER surgery (Dr. Mcleod) rehabilitation technician-->help appreciated * GI Consult (Dr. Pandya) rehabilitation technician-->help appreciated-->signed off * No planned GI intervention at this time, will signed off case. Ideally would favor deferring any surgical interventional until after of child, however if clinically necessary to perform lap cholecystectomy, it can be done 2nd trimester, which is currently is using careful surgical precautions * Abdominal MRI (06/10/17): intrauterine . 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 No mass identified. No clear indication of right hydroureter. Cholelithiasis without evidence of cholecystitis * Ob US (06/08/17): single liver intrauterine gestation. subchorionic hemorrhage * Ab US (05/29/17); cholelithiasis, mild pelvocaliectasis of right kidney, mild pelviectasis of left kidney * Lactated Ringers 100 cc/hr * Liquid Diet * Morphine 1 mg Q6 prn moderate pain and 2 mg Q6 prn severe pain--->has not used since yesterday * Zofran 4 mg IV Q6 prn nausea/vomiting * Zosyn 2.25 gm IV Q6H (active since 06/08/17) 2) Right Hydronephrosis * Urology consult Dr. Patel, help appreciated * Resident Carla has spoken with him today in light of official abdominal MRI, no intervention at this time 3) History of Prior UTI * Urine culture (06/09/17): no growth * Zosyn 2.25g IV Q6H (active since 06/08/17) 4) Subchorionic hemorrhage * Ob US (06/08/17): single liver intrauterine gestation. subchorionic hemorrhage * Will need to f/u with OB-FR[employer] OF HOU[employer] MANAGER; note does not comment * Patient has f/u with outpatient ob-electrical lineworker planned this week 5) Prophylaxis * SCDs * Bacid 1 tab PO daily * Pepcid 20 mg IV daily * vitamins PO daily * Folic acid 1mg IV daily * MVI/Folic acid 1 tab PO daily Disposition: We will advance diet to clears and monitor symptoms overnight. Plan for discharge tomorrow if remains stable and asymptomatic. <Lux Aguirer - Last Filed: 06/10/17 17:18> Subjective - Date & Time of Evaluation Date of Evaluation: 06/10/17 Time of Evaluation: 13:52 - Subjective Subjective: PGY1 Medicine Note for Dr. Cabello Patient seen and examined at bedside this morning. No acute events overnight. Patient reports that her pain has currently resolved at the time of the exam. She still is experiencing intermittent RUQ/flank/right sided low back pain. She is urinating multiple times throughout the day without any pain. She is very hungry and would like to eat. She was NPO until AM labs resulted to trend LFTs/ T. Bili. Denies fevers, chills, nausea, vomiting, diarrhea, constipation, chest pain, abdominal pain or headaches. Objective - Vital Signs/Intake and Output Vital Signs (last 24 hours): Temp Pulse Resp BP Pulse Ox 98.6 F 69 20 94/63 L 99 06/10/17 07:53 06/10/17 07:53 06/10/17 07:53 06/10/17 07:53 06/10/17 08:43 - Medications Medications: Current Medications Famotidine (Pepcid) 20 mg IVP DAILY [facility] Last Admin: 06/10/17 10:16 Dose: 20 mg Piperacillin Sod/Tazobactam Sod (Zosyn 2.25 Gm Iv Premix) 2.25 gm in 50 mls @ 100 mls/hr IVPB Q6H [facility] PRN Reason: Protocol Last Admin: 06/10/17 13:38 Dose: 100 mls/hr Lactated Ringer's (Lactated Ringer's) 1,000 mls @ 100 mls/hr IV .Q10H [facility] Last Admin: 06/10/17 09:17 Dose: Not Given Folic Acid 1 mg/ Sodium (Chloride) 100.2 mls @ 60 mls/hr IVPB DAILY [facility] Last Admin: 06/10/17 10:16 Dose: 60 mls/hr Lactobacillus Acidophilus (Bacid Acidophilus) 1 cap PO BID [facility] Last Admin: 06/10/17 10:16 Dose: 1 cap Morphine Sulfate (Morphine) 1 mg IV Q6 PRN PRN Reason: Pain, moderate (4-7) Last Admin: 06/09/17 01:46 Dose: 1 mg Morphine Sulfate (Morphine) 2 mg IV Q6 PRN PRN Reason: Pain, severe (8-10) Last Admin: 06/09/17 21:59 Dose: 2 mg Ondansetron HCl (Zofran Inj) 4 mg IVP Q6H PRN PRN Reason: Nausea/Vomiting Last Admin: 06/10/17 03:25 Dose: 4 mg Multivit/Folic Acid/Iron () 1 tab PO DAILY [facility] Last Admin: 06/10/17 10:16 Dose: 1 tab - Labs Labs: 06/10/17 07:14 06/10/17 07:14 PT 12.4 SECONDS (9.7-12.2) H 06/08/17 11:03 INR 1.1 06/08/17 11:03 APTT 26 SECONDS (21-34) 06/08/17 11:03 - Constitutional Appears: Non-toxic, No Acute Distress - Head Exam Head Exam: ATRAUMATIC, NORMOCEPHALIC - Eye Exam Eye Exam: EOMI, Normal appearance - ENT Exam ENT Exam: Mucous Membranes Moist - Respiratory Exam Respiratory Exam: NORMAL BREATHING PATTERN. absent: Accessory Muscle Use, Rales , Rhonchi, Wheezes, Respiratory Distress - Cardiovascular Exam Cardiovascular Exam: REGULAR RHYTHM, +S1, +S2 - GI/Abdominal Exam GI & Abdominal Exam: Soft, Normal Bowel Sounds. absent: Distended, Firm, Guarding, Rigid, Tenderness - Extremities Exam Extremities Exam: absent: Calf Tenderness, Pedal Edema - Back Exam Back Exam: CVA tenderness (R) (mild). absent: CVA tenderness (L) - Neurological Exam Neurological Exam: Alert, Awake, Oriented x3 - Psychiatric Exam Psychiatric exam: Normal Affect, Normal Mood - Skin Skin Exam: Dry, Warm Assessment and Plan - Assessment and Plan (Free Text) Plan: RUQ abdominal pain in secondary to biliary colic? Surgery consult, Dr. Arambula, help appreciated - No planned surgical intervention at this time. quality assurance specialist consult, Dr. Mcleod, help appreciated GI consult, Dr. Pandya, masoud appreciated - No planned GI intervention at this time, signed off case. Abdominal ultrasound demonstrates cholelithiasis and mild pelvocaliectasis of bilateral kidneys (which can be seen in up to 90% of females) Abdominal MRI 06/08 - Intrauterine . 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 No mass identified. No clear indication of right hydroureter. Cholelithiasis without evidence of cholecystitis. AST/ALT - 25/37 --> normalized T. Bili - 1.1 --> normalized Lactated Ringers 100 cc/hr Restarted on clear liquid diet - advance diet as tolerated Morphine 1 mg Q6 prn moderate pain and 2 mg Q6 prn severe pain Zofran 4 mg IV Q6 prn nausea/vomiting Zosyn 2.25 gm IV Q6 (started on 06/08/17) Right Hydronephrosis Urology consult Dr. Patel, help appreciated - Per conversation with Dr. Patel today, no need for surgical intervention needed for forniceal rupture. Patient's pain has improved with antibiotics. Continue for total of 10 more days. Clear for discharge from urology standpoint. UTI Based on urinalysis from 06/06/17. Urine culture from prior ER visit grew Corynebacterium species. Urine culture 06/09 - No growth Previously on Macrobid BID 7 day course and has taken it for 2 days now Now on Zosyn 2.25 Q6H Subchorionic hemorrhage Ob US (06/08/17): single intrauterine gestation. subchorionic hemorrhage Follow up OB recommendations - awaiting recs. Prophylaxis SCDs Bacid BID Pepcid 20 mg IV daily vitamins PO daily Folic acid IV daily Disposition: No Surgical or Urological intervention needed at this time. Patient was instructed to follow up with surgical clinic if symptoms return or worsen after discharge. Case discussed with Dr. Destiney Wasserman Carla PGY1
--- NOTE | 2017-06-10 15:22 | CP.PCM.PN ---
<Prudencio Asencio Azeem - Last Filed: 06/10/17 15:20> Subjective - Date & Time of Evaluation Date of Evaluation: 06/10/17 Time of Evaluation: 06:45 - Subjective Subjective: General Surgery: Dr Arambula Pt S&E. REMBERTO. Reports abdominal pain is improved. Requesting to eat. Denies n/v, f/c, sob or chest pain. Objective - Vital Signs/Intake and Output Vital Signs (last 24 hours): Temp Pulse Resp BP Pulse Ox 98.6 F 69 20 94/63 L 99 06/10/17 07:53 06/10/17 07:53 06/10/17 07:53 06/10/17 07:53 06/10/17 08:43 Intake and Output: 06/10/17 06/10/17 06:59 18:59 Intake Total 1300 Balance 1300 - Medications Medications: Current Medications Famotidine (Pepcid) 20 mg IVP DAILY [facility] Last Admin: 06/10/17 10:16 Dose: 20 mg Piperacillin Sod/Tazobactam Sod (Zosyn 2.25 Gm Iv Premix) 2.25 gm in 50 mls @ 100 mls/hr IVPB Q6H [facility] PRN Reason: Protocol Last Admin: 06/10/17 13:38 Dose: 100 mls/hr Lactated Ringer's (Lactated Ringer's) 1,000 mls @ 100 mls/hr IV .Q10H [facility] Last Admin: 06/10/17 09:17 Dose: Not Given Folic Acid 1 mg/ Sodium (Chloride) 100.2 mls @ 60 mls/hr IVPB DAILY [facility] Last Admin: 06/10/17 10:16 Dose: 60 mls/hr Lactobacillus Acidophilus (Bacid Acidophilus) 1 cap PO BID [facility] Last Admin: 06/10/17 10:16 Dose: 1 cap Morphine Sulfate (Morphine) 1 mg IV Q6 PRN PRN Reason: Pain, moderate (4-7) Last Admin: 06/09/17 01:46 Dose: 1 mg Morphine Sulfate (Morphine) 2 mg IV Q6 PRN PRN Reason: Pain, severe (8-10) Last Admin: 06/09/17 21:59 Dose: 2 mg Ondansetron HCl (Zofran Inj) 4 mg IVP Q6H PRN PRN Reason: Nausea/Vomiting Last Admin: 06/10/17 03:25 Dose: 4 mg Multivit/Folic Acid/Iron () 1 tab PO DAILY [facility] Last Admin: 06/10/17 10:16 Dose: 1 tab - Labs Labs: 06/10/17 07:14 06/10/17 07:14 PT 12.4 SECONDS (9.7-12.2) H 06/08/17 11:03 INR 1.1 06/08/17 11:03 APTT 26 SECONDS (21-34) 06/08/17 11:03 - Constitutional Appears: Non-toxic, No Acute Distress - ENT Exam ENT Exam: Mucous Membranes Dry - Respiratory Exam Respiratory Exam: absent: Accessory Muscle Use, Respiratory Distress - Cardiovascular Exam Cardiovascular Exam: REGULAR RHYTHM. absent: Tachycardia - GI/Abdominal Exam GI & Abdominal Exam: Soft, Tenderness (LUQ but significantly improved). absent : Distended, Firm, Guarding, Rigid - Neurological Exam Neurological Exam: Alert, Awake, Oriented x3 - Psychiatric Exam Psychiatric exam: Normal Affect, Normal Mood - Skin Skin Exam: Normal Color, Warm Assessment and Plan - Assessment and Plan (Free Text) Assessment: 31F 13wks with RUQ pain Plan: pain resolving no plans for surgical intervention would d/c with PO abx pt instructed to f/u in surgical clinical if symptoms return or worsen further mgmt per primary/urology d/w Dr Ralf Asencio, PGY3 <Imtiaz Arambula B - Last Filed: 06/10/17 21:39> Objective - Vital Signs/Intake and Output Vital Signs (last 24 hours): Temp Pulse Resp BP Pulse Ox 98.2 F 66 20 98/61 L 100 06/10/17 16:00 06/10/17 16:00 06/10/17 16:00 06/10/17 16:00 06/10/17 16:00 Intake and Output: 06/10/17 06/11/17 18:59 06:59 Intake Total 1300 Balance 1300 - Medications Medications: Current Medications Famotidine (Pepcid) 20 mg IVP DAILY [facility] Last Admin: 06/10/17 10:16 Dose: 20 mg Piperacillin Sod/Tazobactam Sod (Zosyn 2.25 Gm Iv Premix) 2.25 gm in 50 mls @ 100 mls/hr IVPB Q6H [facility] PRN Reason: Protocol Last Admin: 06/10/17 17:48 Dose: 100 mls/hr Lactated Ringer's (Lactated Ringer's) 1,000 mls @ 100 mls/hr IV .Q10H [facility] Last Admin: 06/10/17 09:17 Dose: Not Given Folic Acid 1 mg/ Sodium (Chloride) 100.2 mls @ 60 mls/hr IVPB DAILY [facility] Last Admin: 06/10/17 10:16 Dose: 60 mls/hr Lactobacillus Acidophilus (Bacid Acidophilus) 1 cap PO DAILY [facility] Morphine Sulfate (Morphine) 1 mg IV Q6 PRN PRN Reason: Pain, moderate (4-7) Last Admin: 06/09/17 01:46 Dose: 1 mg Morphine Sulfate (Morphine) 2 mg IV Q6 PRN PRN Reason: Pain, severe (8-10) Last Admin: 06/09/17 21:59 Dose: 2 mg Ondansetron HCl (Zofran Inj) 4 mg IVP Q6H PRN PRN Reason: Nausea/Vomiting Last Admin: 06/10/17 03:25 Dose: 4 mg Multivit/Folic Acid/Iron () 1 tab PO DAILY [facility] Last Admin: 06/10/17 10:16 Dose: 1 tab - Labs Labs: 06/10/17 07:14 06/10/17 07:14 PT 12.4 SECONDS (9.7-12.2) H 06/08/17 11:03 INR 1.1 06/08/17 11:03 APTT 26 SECONDS (21-34) 06/08/17 11:03 Attending/Attestation - Attestation I have personally seen and examined this patient.: Yes I have fully participated in the care of the patient.: Yes I have reviewed all pertinent clinical information, including history, physical exam and plan: Yes Notes (Text): Pt was seen and examine at bedside Agree with above note and assessment Pt is asymptomatic at present Mild flank tenderness Pt can be DC home PO antibiotics No surgical intervention required at present for cholelithiasis f.u with Urology for Right kidney pathology Plan d.w pt in detail Risk and benefit explained in detail.
--- NOTE | 2017-06-10 18:28 | PN ---
DATE: 06/10/2017 TIME OF FOLLOWUP: Roughly 01:15 p.m. SUBJECTIVE: The patient is resting much more comfortably today. She has had no complaints of any pain today. No dysuria or gross hematuria, renal colic or abdominal pain at this time. VITAL SIGNS: Her temperature is 98.6, blood pressure is 94/63, respirations are 20, and O2 saturation on room air is 99%. LABORATORY EVALUATION: Today 06/10/2017, shows a continuing decreased WBC count to 9.2 from 14.6 and 10.6 respectively on 06/08/2017 and 06/09/2017. Her hemoglobin is 11.7, hematocrit 34.3, and platelet count is 198,000. Her chem profile shows a sodium of 132, potassium 3.2, chloride 99, CO2 24, BUN and creatinine of 6 and 0.7 respectively, and GFR is greater than 60. Glucose is 71. Her AST is 25, ALT 37, and total bilirubin is now down to 1.1 from 1.4. Alk phos was 74. The patient's ultrasound and MRI were reviewed with Dr. Ovidio Camacho, Radiology today and he agrees with the ultrasound showing only very mild right pelvicaliectasis, the left side was relatively normal. 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 Her MRI showed very mild hydronephrosis, which could be secondary to the malrotated kidney and very very minimal perinephric stranding and this could be possibly secondary to calyceal fornix rupture. The patient is currently pain free at this time and plan for this patient will be just to observe this patient, especially during her 13-week at this time. The patient can eventually be discharged home on oral antibiotics. The patient at this time does not require urologic intervention, which would include a cystoscopy with insertion of a right ureteral stent. Pierre Patel MD
[2017-06-11] MEDS: Lactated Ringer's 1,000 ML IV SCH (05:28)
[2017-06-11] MEDS: Piperacill/Tazo 2.25gm in Dex 2.25 GM/50 ML BAG IVPB SCH (06:00)
[2017-06-11 07:52] LABS: BASO % 0.3 % (0.0-2.0); EOS # 0.1 K/uL (0.0-0.7); EOS % 1.9 % (0.0-4.0); HEMOGLOBIN 12.1 g/dL (11.0-16.0); LYMPH # 2.2 K/uL (1.0-4.3); LYMPH % 29.5 % (20.0-40.0); MEAN CORPUSCULAR HGB CONC 34.9 g/dL (33.0-37.0); MEAN PLATELET VOLUME 9.4 fL (7.2-11.7); MONO # 0.7 K/uL (0.0-0.8); NEUT # 4.4 K/uL (1.8-7.0); NEUT % 59.3 % (50.0-75.0); RBC 4.03 Mil/uL (3.80-5.20); RED CELL DISTRIBUTION WIDTH 13.8 % (11.5-14.5); WHITE BLOOD COUNT 7.4 K/uL (4.8-10.8)
[2017-06-11 08:22] LABS: ALT/SGPT 35 U/L (9-52); AST/SGOT 28 U/L (14-36); BLOOD UREA NITROGEN 5 mg/dL (7-17); CALCIUM 8.7 mg/dl (8.6-10.4); GFR AFRICAN-AMERICAN > 60; GFR NON-AFRICAN AMERICAN > 60
[2017-06-11] MEDS ORDERED: Potassium Chloride 20 mEq ER Tab PO STA (09:20)
[2017-06-11] MEDS ORDERED: Lactobacillus Acidophilus 500 MU Cap PO SCH (10:00)
[2017-06-11] MEDS: Prenatal Multivit/Folic Acid/Iron Tab PO SCH (10:28)
[2017-06-11] MEDS: Morphine 4 MG/ML VIAL IV PRN (12:53)
[2017-06-11 16:05] VITALS: BP 117/76; PULSE 52; TEMP 98.2; O2SAT 100
--- NOTE | 2017-06-11 17:16 | CP.PCM.DIS ---
<Lux Aguirre - Last Filed: 06/11/17 20:29> Provider - Provider Date of Admission: 06/10/17 22:45 Attending physician: Rasheeda Cabello DO Consults: Gen. Surgery - Ralf MANAGER REVIEW - Rossetos Urology - Amanda GI - Mumtaz Time Spent in preparation of Discharge (in minutes): 90 Hospital Course - Lab Results Lab Results: Micro Results 06/09/17 13:45 Urine,Clean Catch Urine Culture - Final No Growth (<1,000 CFU/ML) Most Recent Lab Values WBC 7.4 K/uL (4.8-10.8) 06/11/17 07:40 RBC 4.03 Mil/uL (3.80-5.20) 06/11/17 07:40 Hgb 12.1 g/dL (11.0-16.0) 06/11/17 07:40 Hct 34.7 % (34.0-47.0) 06/11/17 07:40 MCV 86.0 fL (81.0-99.0) 06/11/17 07:40 MCH 30.0 pg (27.0-31.0) 06/11/17 07:40 MCHC 34.9 g/dL (33.0-37.0) 06/11/17 07:40 RDW 13.8 % (11.5-14.5) 06/11/17 07:40 Plt Count 208 K/uL (130-400) 06/11/17 07:40 MPV 9.4 fL (7.2-11.7) 06/11/17 07:40 Neut % (Auto) 59.3 % (50.0-75.0) 06/11/17 07:40 Lymph % (Auto) 29.5 % (20.0-40.0) 06/11/17 07:40 Maury % (Auto) 9.0 % (0.0-10.0) 06/11/17 07:40 Eos % (Auto) 1.9 % (0.0-4.0) 06/11/17 07:40 Baso % (Auto) 0.3 % (0.0-2.0) 06/11/17 07:40 Neut # (Auto) 4.4 K/uL (1.8-7.0) 06/11/17 07:40 Lymph # (Auto) 2.2 K/uL (1.0-4.3) 06/11/17 07:40 Maury # (Auto) 0.7 K/uL (0.0-0.8) 06/11/17 07:40 Eos # (Auto) 0.1 K/uL (0.0-0.7) 06/11/17 07:40 Baso # (Auto) 0.0 K/uL (0.0-0.2) 06/11/17 07:40 PT 12.4 SECONDS (9.7-12.2) H 06/08/17 11:03 INR 1.1 06/08/17 11:03 APTT 26 SECONDS (21-34) 06/08/17 11:03 Sodium 135 mmol/L (132-148) 06/11/17 07:40 Potassium 3.2 mmol/L (3.6-5.2) L 06/11/17 07:40 Chloride 101 mmol/L (98-107) 06/11/17 07:40 Carbon Dioxide 24 mmol/L (22-30) 06/11/17 07:40 Anion Gap 13 (10-20) 06/11/17 07:40 BUN 5 mg/dL (7-17) L 06/11/17 07:40 Creatinine 0.8 mg/dL (0.7-1.2) 06/11/17 07:40 Est GFR ( Amer) > 60 06/11/17 07:40 Est GFR (Non-Af Amer) > 60 06/11/17 07:40 Random Glucose 66 mg/dL (65-105) 06/11/17 07:40 Calcium 8.7 mg/dl (8.6-10.4) 06/11/17 07:40 Phosphorus 3.3 mg/dL (2.5-4.5) 06/11/17 07:40 Magnesium 1.9 mg/dL (1.6-2.3) 06/11/17 07:40 Total Bilirubin 0.7 mg/dL (0.2-1.3) 06/11/17 07:40 AST 28 U/L (14-36) 06/11/17 07:40 ALT 35 U/L (9-52) 06/11/17 07:40 Alkaline Phosphatase 81 U/L (38-126) 06/11/17 07:40 Total Protein 6.0 g/dL (6.3-8.3) L 06/11/17 07:40 Albumin 3.0 g/dL (3.5-5.0) L 06/11/17 07:40 Globulin 3.1 gm/dL (2.2-3.9) 06/11/17 07:40 Albumin/Globulin Ratio 1.0 (1.0-2.1) 06/11/17 07:40 Amylase 83 U/L (30-110) 06/08/17 02:45 Lipase 71 U/L (23-300) 06/08/17 02:45 Urine Color Yellow (YELLOW) 06/08/17 02:45 Urine Clarity Hazy (Clear) 06/08/17 02:45 Urine pH 6.0 (5.0-8.0) 06/08/17 02:45 Ur Specific Anthony 1.014 (1.003-1.030) 06/08/17 02:45 Urine Protein Negative mg/dL (NEGATIVE) 06/08/17 02:45 Urine Glucose (UA) Normal mg/dL (Normal) 06/08/17 02:45 Urine Ketones Negative mg/dL (NEGATIVE) 06/08/17 02:45 Urine Blood Negative (NEGATIVE) 06/08/17 02:45 Urine Nitrate Negative (NEGATIVE) 06/08/17 02:45 Urine Bilirubin Negative (NEGATIVE) 06/08/17 02:45 Urine Urobilinogen Normal mg/dL (0.2-1.0) 06/08/17 02:45 Ur Leukocyte Esterase Neg Ozzie/uL (Negative) 06/08/17 02:45 Urine WBC (Auto) 1 /hpf (0-5) 06/08/17 02:45 Urine RBC (Auto) 2 /hpf (0-3) 06/08/17 02:45 Ur Squamous Epith Cells 1 /hpf (0-5) 06/08/17 02:45 Urine HCG, Qual Positive (NEGATIVE) 06/08/17 02:45 - Hospital Course Hospital Course: As per admission documentation This is a 31 year old and 13 weeks female with PMHx gastritis who presents with RUQ abdominal pain. Patient states that the pain started on . It is primarily in the RUQ, but it radiates in a "c-like" pattern around the abdomen. Patient is unable to describe the quality of the pain, though she rates it as an 8/10. She has tried taking Tylenol without relief. Pain is exacerbated with movement. Patient also complaining of associated nausea /vomiting. She had multiple bouts of vomiting such that she does not remember the number. She does report that it is usually brown or yellow, but there has been some streaking of blood in the vomitus. Patient also complaining of constipation, stating that her last BM was 3 or 4 days ago. Patient was recently seen in the ED two days ago where she was found with UTI and prescribed 7 day course of Macrobid. Hospital Course Patient was admitted to [facility] abdominal pain in setting of . Gen. Surgery - Ralf, MANAGER REVIEW - Patricia, Urology - Amanda, GI - Mumtaz Abdominal ultrasound demonstrates cholelithiasis and mild pelvocaliectasis of bilateral kidneys (which can be seen in up to 90% of females) Abdominal MRI 06/08 - Intrauterine . 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 No mass identified. No clear indication of right hydroureter. Cholelithiasis without evidence of cholecystitis. Surgery - No needed for intervention at this time as elevated T. Bili and LFTs normalized within one day. Patient can follow up with surgical clinic at later date if pain returns or worsens. MANAGER REVIEW - Patient was informed that she may experience some bleeding as a result. It was recommended that the patient should start pelvic rest and refrain from any sexual activity at this time GI - No need any intervention at this time as elevated T. Bili and LFTs normalized within one day. Urology - no need for surgical intervention needed for forniceal rupture. Patient's pain has improved with antibiotics. Continue abx to complete course. Patient states her low back pain had returned on 06/11 after improving the first few days. It was determined that her back pain was musculoskeletal. She received some OMM and improved. She was instructed to follow up in the clinic to receive OMM treatments. She was discharged on 06/11 with the following instructions. Discharge Instructions Patient is to be discharged home per Dr. Cabello. Patient is to follow up with Primary Care Physician and MANAGER REVIEW within one week of being discharged. Patient states that she currently has an appointment with her MANAGER REVIEW on Saturday, June 172017. If the patient does not have a Primary Care Physician, she is to follow up with the [facility] located in the basement of [facility] Please call and schedule an appointment within one week of being discharged. Patient is being discharged home with new medications. Patient was found to have a Subchorionic Hemorrhage during her stay. She was informed that she may experience some bleeding as a result. It was recommended that the patient should start pelvic rest and refrain from any sexual activity at this time. After the patient's is complete, she can follow up with Dr. Arambula for further evaluation of cholelithiasis. If you experience any new or worsening symptoms, please go directly to the nearest emergency location. New Medications: Lactobacillus Acidophilus: 1 capsule PO daily - Take at least 30 minutes after antibiotic. Take for 39 days. Macrobid 100mg Cap: 1 Cap PO q12h - Take for 9 days. Continue to Take Multivitamin as directed by MANAGER REVIEW If patient continues to experience pain, please take Tylenol for relief. Avoid taking Aspirin or any NSAIDs during your unless otherwise directed by your MANAGER REVIEW. Physical Exam - Constitutional Appears: Non-toxic, No Acute Distress - Head Exam Head Exam: ATRAUMATIC, NORMOCEPHALIC - Eye Exam Eye Exam: EOMI, Normal appearance - ENT Exam ENT Exam: Mucous Membranes Moist - Respiratory Exam Respiratory Exam: NORMAL BREATHING PATTERN. absent: Accessory Muscle Use, Rales , Rhonchi, Wheezes, Respiratory Distress - Cardiovascular Exam Cardiovascular Exam: REGULAR RHYTHM, +S1, +S2 - GI/Abdominal Exam GI & Abdominal Exam: Soft, Normal Bowel Sounds. absent: Distended, Firm, Guarding, Rigid, Tenderness - Extremities Exam Extremities Exam: absent: Calf Tenderness, Pedal Edema - Back Exam Back Exam: Paraspinal spasm/tenderness on right low back pain. absent: CVA tenderness (R), CVA tenderness (L) - Neurological Exam Neurological Exam: Alert, Awake, Oriented x3 - Psychiatric Exam Psychiatric exam: Normal Affect, Normal Mood - Skin Skin Exam: Dry, Warm Discharge Exam - Head Exam Head Exam: ATRAUMATIC, NORMOCEPHALIC Discharge Plan - Discharge Medications Prescriptions: Lactobacillus Acidophilus [Bacid Acidophilus] 1 cap PO DAILY #39 cap Nitrofurantoin Macrocrystals [Macrobid] 1 cap PO Q12H #18 cap - Follow Up Plan Condition: STABLE Disposition: HOME/ ROUTINE Instructions: Urinary Tract Infection in Women (DC), Urinary Tract Infection in Men (DC), Dysuria (GEN) Additional Instructions: Patient is to be discharged home per Dr. Cabello. Patient is to follow up with Primary Care Physician and MANAGER REVIEW within one week of being discharged. Patient states that she currently has an appointment with her MANAGER REVIEW on Saturday, June. If the patient does not have a Primary Care Physician, she is to follow up with the [facility] located in the [facility]. Please call and schedule an appointment within one week of being discharged. Patient is being discharged home with new medications. Patient was found to have a Subchorionic Hemorrhage during her stay. She was informed that she may experience some bleeding as a result. It was recommended that the patient should start pelvic rest and refrain from any sexual activity at this time. After the patient's is complete, she can follow up with Dr. Arambula for further evaluation of cholelithiasis. If you experience any new or worsening symptoms, please go directly to the nearest emergency location. New Medications: Lactobacillus Acidophilus: 1 capsule PO daily - Take at least 30 minutes after antibiotic. Take for 39 days. Macrobid 100mg Cap: 1 Cap PO q12h - Take for 9 days. Continue to Take Multivitamin as directed by MANAGER REVIEW If patient continues to experience pain, please take Tylenol for relief. Avoid taking Aspirin or any NSAIDs during your unless otherwise directed by your MANAGER REVIEW. Referrals: [facility] at [facility] [Outside] Imtiaz Arambula MD [Staff Provider] - <Rasheeda Cabello V - Last Filed: 06/12/17 17:59> Provider - Provider Date of Admission: 06/10/17 22:45 Attending physician: Rasheeda Cabello DO Hospital Course - Lab Results Lab Results: Micro Results 06/09/17 13:45 Urine,Clean Catch Urine Culture - Final No Growth (<1,000 CFU/ML) Most Recent Lab Values WBC 7.4 K/uL (4.8-10.8) 06/11/17 07:40 RBC 4.03 Mil/uL (3.80-5.20) 06/11/17 07:40 Hgb 12.1 g/dL (11.0-16.0) 06/11/17 07:40 Hct 34.7 % (34.0-47.0) 06/11/17 07:40 MCV 86.0 fL (81.0-99.0) 06/11/17 07:40 MCH 30.0 pg (27.0-31.0) 06/11/17 07:40 MCHC 34.9 g/dL (33.0-37.0) 06/11/17 07:40 RDW 13.8 % (11.5-14.5) 06/11/17 07:40 Plt Count 208 K/uL (130-400) 06/11/17 07:40 MPV 9.4 fL (7.2-11.7) 06/11/17 07:40 Neut % (Auto) 59.3 % (50.0-75.0) 06/11/17 07:40 Lymph % (Auto) 29.5 % (20.0-40.0) 06/11/17 07:40 Maury % (Auto) 9.0 % (0.0-10.0) 06/11/17 07:40 Eos % (Auto) 1.9 % (0.0-4.0) 06/11/17 07:40 Baso % (Auto) 0.3 % (0.0-2.0) 06/11/17 07:40 Neut # (Auto) 4.4 K/uL (1.8-7.0) 06/11/17 07:40 Lymph # (Auto) 2.2 K/uL (1.0-4.3) 06/11/17 07:40 Maury # (Auto) 0.7 K/uL (0.0-0.8) 06/11/17 07:40 Eos # (Auto) 0.1 K/uL (0.0-0.7) 06/11/17 07:40 Baso # (Auto) 0.0 K/uL (0.0-0.2) 06/11/17 07:40 PT 12.4 SECONDS (9.7-12.2) H 06/08/17 11:03 INR 1.1 06/08/17 11:03 APTT 26 SECONDS (21-34) 06/08/17 11:03 Sodium 135 mmol/L (132-148) 06/11/17 07:40 Potassium 3.2 mmol/L (3.6-5.2) L 06/11/17 07:40 Chloride 101 mmol/L (98-107) 06/11/17 07:40 Carbon Dioxide 24 mmol/L (22-30) 06/11/17 07:40 Anion Gap 13 (10-20) 06/11/17 07:40 BUN 5 mg/dL (7-17) L 06/11/17 07:40 Creatinine 0.8 mg/dL (0.7-1.2) 06/11/17 07:40 Est GFR ( Amer) > 60 06/11/17 07:40 Est GFR (Non-Af Amer) > 60 06/11/17 07:40 Random Glucose 66 mg/dL (65-105) 06/11/17 07:40 Calcium 8.7 mg/dl (8.6-10.4) 06/11/17 07:40 Phosphorus 3.3 mg/dL (2.5-4.5) 06/11/17 07:40 Magnesium 1.9 mg/dL (1.6-2.3) 06/11/17 07:40 Total Bilirubin 0.7 mg/dL (0.2-1.3) 06/11/17 07:40 AST 28 U/L (14-36) 06/11/17 07:40 ALT 35 U/L (9-52) 06/11/17 07:40 Alkaline Phosphatase 81 U/L (38-126) 06/11/17 07:40 Total Protein 6.0 g/dL (6.3-8.3) L 06/11/17 07:40 Albumin 3.0 g/dL (3.5-5.0) L 06/11/17 07:40 Globulin 3.1 gm/dL (2.2-3.9) 06/11/17 07:40 Albumin/Globulin Ratio 1.0 (1.0-2.1) 06/11/17 07:40 Amylase 83 U/L (30-110) 06/08/17 02:45 Lipase 71 U/L (23-300) 06/08/17 02:45 Urine Color Yellow (YELLOW) 06/08/17 02:45 Urine Clarity Hazy (Clear) 06/08/17 02:45 Urine pH 6.0 (5.0-8.0) 06/08/17 02:45 Ur Specific Anthony 1.014 (1.003-1.030) 06/08/17 02:45 Urine Protein Negative mg/dL (NEGATIVE) 06/08/17 02:45 Urine Glucose (UA) Normal mg/dL (Normal) 06/08/17 02:45 Urine Ketones Negative mg/dL (NEGATIVE) 06/08/17 02:45 Urine Blood Negative (NEGATIVE) 06/08/17 02:45 Urine Nitrate Negative (NEGATIVE) 06/08/17 02:45 Urine Bilirubin Negative (NEGATIVE) 06/08/17 02:45 Urine Urobilinogen Normal mg/dL (0.2-1.0) 06/08/17 02:45 Ur Leukocyte Esterase Neg Ozzie/uL (Negative) 06/08/17 02:45 Urine WBC (Auto) 1 /hpf (0-5) 06/08/17 02:45 Urine RBC (Auto) 2 /hpf (0-3) 06/08/17 02:45 Ur Squamous Epith Cells 1 /hpf (0-5) 06/08/17 02:45 Urine HCG, Qual Positive (NEGATIVE) 06/08/17 02:45 Attending/Attestation - Attestation I have personally seen and examined this patient.: Yes I have fully participated in the care of the patient.: Yes I have reviewed all pertinent clinical information, including history, physical exam and plan: Yes Notes (Text): This is late computer entry for 06/11/17. Patient seen, examined and case discussed with day-time resident. Patient reports abdominal pain is lessened, she does not feel nauseous. Patient tolerated liquid diet overnight and advanced to regular diet. Patient reports she does not like the food her and rather have her own food from home. I have explained to the patient that we want her to try to eat make sure no pain. Resident discussed with OB-Hospitalist, Dr Quintanilla, help very appreciated in regards to subchorionic hemorrhage. patient is not symptomatic of it will need to monitored for any vaginal bleeding or cramping. Per urology, no urologic intervention. Recommended to complete antibotics. Per general surgery, no intervention at this time. Patient is aware if she has any abdominal pain, nausea, vomitting to come to back to be evaluated immediately. Patient reported low back pain later in the day, which was relieved with soft tissue technique, noninvasive which patient allowing to relieve muscle tension in the back (referred to as OMM). Patient was re-evaluated as resident on OB as well, stable for discharge. Patient has pending appointment with her OB-WAITER/WAITRESS CABIN CLASS this upcoming June 17. Resident has spoken in great detail to patient with assistance of Nauruan translation at time of discharge. This is a summary of patient's hospitalization. Please see EMR for further details. Assessment/Plan 1) Abdominal Pain * General surgery (Dr. Arambula) pellet preparation operator-->help appreciated * No intervention at this time * OB-WAITER/WAITRESS CABIN CLASS surgery (Dr. Mcleod) pellet preparation operator-->help appreciated * Ob Hospitalist-->stable; f/u with OB-WAITER/WAITRESS CABIN CLASS to be monitored during * GI Consult (Dr. Pandya) pellet preparation operator-->help appreciated-->signed off * No planned GI intervention at this time, will signed off case. Ideally would favor deferring any surgical interventional until after of child, however if clinically necessary to perform lap cholecystectomy, it can be done 2nd trimester, which is currently is using careful surgical precautions * Abdominal MRI (06/10/17): intrauterine . 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 No mass identified. No clear indication of right hydroureter. Cholelithiasis without evidence of cholecystitis * Ob US (06/08/17): single liver intrauterine gestation. subchorionic hemorrhage * Ab US (05/29/17); cholelithiasis, mild pelvocaliectasis of right kidney, mild pelviectasis of left kidney * Diet advanced * Discharged to complete PO Macrobid to cover in light of recent UTI infection; repeat urine culture cleared; 2) Mild Right Hydronephrosis * Urology consult Dr. Patel, help appreciated * Resident Carla has spoken with him 06/10 in light of official abdominal MRI, no intervention at this time * Abdominal MRI (06/10/17): intrauterine . 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 No mass identified. No clear indication of right hydroureter. Cholelithiasis without evidence of cholecystitis 3) History of Prior UTI * Urine culture (06/09/17): no growth * Zosyn 2.25g IV Q6H (active since 06/08/17) * Complete Macrobid antibiotic on discharge 4) Subchorionic hemorrhage * Ob US (06/08/17): single liver intrauterine gestation. subchorionic hemorrhage * Resident has spoken with OB-Hospitalist, to intervention, to be monitor, patient is not symptomatic--no abdominal cramping no vaginal bleeding * Patient has f/u with outpatient ob-product analyst--appointment on June 17 2017 5) Prophylaxis * SCDs * Bacid 1 tab PO daily * Pepcid 20 mg IV daily * MVI/Folic acid 1 tab PO daily
[2017-06-13] MEDS ORDERED: Pneumococcal 23-Valent Vaccine IM ONE (10:00)
[2017-06-13] MEDS ORDERED: Influenza Vaccine 60 mcg/0.5 mL SYR (4YR UP) IM ONE (10:00)
== END 2017-06-11 18:08 | disposition home or self-care (01) | DRG 886 ==
LOC: C.ER 01:50 → C.3T 03:25 → OBSVTOIN 06-10 22:45
PROVIDERS: ADMIT Hospitalist; ATTEND Hospitalist
DX: O26.611 Liver and biliary tract disorders in pregnancy, first trimester (principal); N13.30 Unspecified hydronephrosis; O23.41 Unspecified infection of urinary tract in pregnancy, first trimester; O20.8 Other hemorrhage in early pregnancy; O99.89 Other specified diseases and conditions complicating pregnancy, childbirth and the puerperium; N23 Unspecified renal colic; O32.1XX0 Maternal care for breech presentation, not applicable or unspecified; K80.20 Calculus of gallbladder without cholecystitis without obstruction; K59.00 Constipation, unspecified; Z3A.13 13 weeks gestation of pregnancy; Z87.440 Personal history of urinary (tract) infections; Z87.442 Personal history of urinary calculi

== ENCOUNTER 2017-11-28 | Inpatient (IN) | payer MEDICAID, OTHER ==
[2017-11-28] MEDS: Lactated Ringer's 1,000 ML IV SCH ×2 (00:45→09:30)
[2017-11-28] MEDS ORDERED: Penicillin G 5 Million Unit Vial IVPB ONE (01:05)
[2017-11-28 01:41] VITALS: BMI 27.1
[2017-11-28 01:55] LABS: HEMOGLOBIN 11.6 g/dL (11.0-16.0); MEAN CELL VOLUME 76.6 fL (81.0-99.0); MEAN CORPUSCULAR HEMOGLOBIN 25.2 pg (27.0-31.0); MEAN CORPUSCULAR HGB CONC 32.8 g/dL (33.0-37.0); MEAN PLATELET VOLUME 9.9 fL (7.2-11.7); RBC 4.62 Mil/uL (3.80-5.20); RED CELL DISTRIBUTION WIDTH 15.5 % (11.5-14.5); WHITE BLOOD COUNT 9.1 K/uL (4.8-10.8)
[2017-11-28 02:00] LABS: SQUAMOUS EPITHIAL 2 /hpf (0-5); URINE BACTERIA RARE (<OCC); URINE BILIRUBIN NEGATIVE (NEGATIVE); URINE BLOOD NEGATIVE (NEGATIVE); URINE CLARITY Hazy (Clear); URINE COLOR Yellow (YELLOW); URINE GLUCOSE (UA) NORMAL (Normal); URINE LEUKOCYTE ESTERASE NEG Leu/uL (Negative); URINE PROTEIN NEGATIVE (NEGATIVE); URINE UROBILINOGEN NORMAL mg/dL (0.2-1.0)
[2017-11-28 02:19] LABS: ALBUMIN 3.8 g/dL (3.5-5.0); BLOOD UREA NITROGEN 8 mg/dL (7-17); CALCIUM 10.1 mg/dl (8.6-10.4); GFR NON-AFRICAN AMERICAN > 60
[2017-11-28 02:20] LABS: ALB/GLOB RATIO 1.1 (1.0-2.1); ALT/SGPT 13 U/L (9-52); AST/SGOT 22 U/L (14-36)
--- NOTE | 2017-11-28 04:20 | OBHP ---
Datetime: 11/28/2017 04:15 IP Adm Impression: Term, intrauterine IP Admit Plan: Admit to unit; Initiate labor protocol Admit Comment, IP Provider: at 38+weka came with c/o srom at 12 .30 nd irg ctxs, no vb , +fm. obhx 2 x pmh de med pnv all nkda psh de soch de ve /-2' a/p at 38+weks in labor/prom admit to l_d_ npo/ivf gbs prophylaxsis cont john and efm anticpat Pelvic Type - PN: Adequate Extremities - PN: Normal Abdomen - PN: Normal Back - PN: Normal Breast - PN: Normal Lungs - PN: Normal Heart - PN: Normal Thyroid - PN: Normal Neurologic - PN: Normal HEENT - PN: Normal General - PN: Normal FHR - Baseline A Provider: 130 Contraction Comments Provider: irrg EGA AdmitDate IP: 38.3 Vital Signs Provider: Reviewed; Within Normal Limits IP Chief Complaint: Suspected ruptured membranes NICHD Variability Prov Fetus A: Moderate 6-25bpm NICHD Accel Fetus A IP Provider: 15X15 Dilatation, Provider: 3 Effacement, Provider: 70 Station, Provider: -3 Genitourinary Exam: Normal DTRs - PN: Normal
[2017-11-28] MEDS: Penicillin G Potassium 2.5 MU in Dextrose 5% In Water 50 ML IV SCH ×2 (05:15→09:04)
[2017-11-28] MEDS ORDERED: Oxytocin 30 UNIT 30 UNITS/500 ML BAG IV ONE ×2 (07:58→09:21)
--- NOTE | 2017-11-28 08:13 | OBPN ---
Datetime: 11/28/2017 04:15 IP Informed Consent Obtain Other: verbal will obtaine written if CD indicated IP Progress Impression: Rupture of membranes IP Informed Consent Obtain: Sterilization IP Progress Plan: Augmentation Membranes, Provider: Ruptured Amniotic Fluid Color, Provider: Meconium, Light Contraction Comments Provider: irrg FHR - Baseline A Provider: 130 Presentation-Admit: Vertex IP Progress Note Comment: s: + emesis this am. states ctxs are mild i:38.2wks srom 23:30 gbs+ p: begin pitocin for epidural pt desires btl d/w pt that is a permanent, nonreversible procedure. pt understands. pt advised jessica t in the event a cd is indicated a written consent will be obtained as well for BTL. Vital Signs Provider: Reviewed; Within Normal Limits NICHD Accel Fetus A IP Provider: 15X15 NICHD Variability Prov Fetus A: Moderate 6-25bpm Dilatation, Provider: 3 Effacement, Provider: 70 Station, Provider: -3 NICHD Decel Fetus A IP Provider: None
[2017-11-28] MEDS ORDERED: Bupivacaine HCl/FentaNYL Cit 100 ML EPI ONE (08:26)
[2017-11-28] MEDS ORDERED: Benzocaine/Menthol 20%-0.5% Topical Spray (60 ml) TOP PRN (12:02)
--- NOTE | 2017-11-28 12:32 | OBDS ---
DELIVERY PERSONNEL Delivery Doctor: Pushpa Alcantara MD Vortex Operator: Iker Granados RN Anesthesiologist: dr. gomez MATERNAL INFORMATION Provider Comments: 38.3wks srom with augmentation procedure: ; placenta delivered spontaneously and intact. repair of 1st degree laceration ob: amelia navarro hossuleman do anesth: dr gomez- epidural findings: male 9_9 7lb1oz ebl 100cc complic none neon remained in br with pt. LABOR SUMMARY EDC: 12/10/2017 00:00 No. Babies in Womb: 1 LABOR INFORMATION Group B Beta Strep: Positive (Annotations: 11/20/2017) MEMBRANES Membranes Rupture Method: Spontaneous Rupture of Membranes: 11/27/2017 23:30 Length of Rupture (hrs): 12.25 Amniotic Fluid Color: Light Meconium Amniotic Fluid Amount: Large Amniotic Fluid Odor: Normal STAGES OF LABOR Stage 3 hrs: 0 Stage 3 min: 5 VAGINAL DELIVERY Episiotomy: None Laceration Extension: First Degree Laceration Type: Vaginal Laceration Repair Note: repair of 1st degree laceration wiht 2-0 chromic. BABY A INFORMATION Infant Delivery Date/Time: 11/28/2017 11:45 Method of Delivery: Vaginal Born in Route : No : N/A Forceps: N/A Vacuum Extraction: N/A Shoulder Dystocia : No SHOULDER DYSTOCIA BABY A Infant Delivery Date/Time: 11/28/2017 11:45 PRESENTATION/POSITION BABY A Presentation: Cephalic Cephalic Presentation: Vertex Vertex Position: Left Occipital Anterior Breech Presentation: N/A PLACENTA INFORMATION BABY A Placenta Delivery Time : 11/28/2017 11:50 Placenta Method of Delivery: Spontaneous INFORMATION BABY A Gestational Age at Delivery: 38.3 Gestational Status: Term Outcome : Liveborn Condition : Stable Infant Sex: Male IDENTIFICATION/MEDS BABY A ID Band Number: [id number] ID Band Location: Left Leg; Left Arm Sensor Applied: Yes Sensor Number: [id number] Sensor Location : Cord Clamp Vitamin K Given : Not Given Erythromycin Given: Not Given WEIGHT/LENGTH BABY A Birthweight (gms): 3200 Weight (lb): 7 Weight (oz): 1 Length Inches: 20.00 Infant Length cms: 50.8
[2017-11-28] MEDS ORDERED: Oxycodone/Acetaminophen 5/325 mg Tab PO PRN (16:19)
[2017-11-28] MEDS: Oxycodone/Acetaminophen 5/325 mg Tab PO PRN ×2 (16:41→22:21)
[2017-11-29] MEDS: Oxycodone/Acetaminophen 5/325 mg Tab PO PRN (04:41)
[2017-11-29 08:37] LABS: BASO % 0.2 % (0.0-2.0); EOS # 0.1 K/uL (0.0-0.7); EOS % 1.4 % (0.0-4.0); HEMOGLOBIN 10.5 g/dL (11.0-16.0); LYMPH # 2.8 K/uL (1.0-4.3); LYMPH % 28.6 % (20.0-40.0); MEAN CELL VOLUME 76.6 fL (81.0-99.0); MEAN CORPUSCULAR HEMOGLOBIN 25.9 pg (27.0-31.0); MEAN CORPUSCULAR HGB CONC 33.8 g/dL (33.0-37.0); MEAN PLATELET VOLUME 9.7 fL (7.2-11.7); MONO # 0.5 K/uL (0.0-0.8); MONO % 5.5 % (0.0-10.0); NEUT # 6.4 K/uL (1.8-7.0); NEUT % 64.3 % (50.0-75.0); RBC 4.05 Mil/uL (3.80-5.20); RED CELL DISTRIBUTION WIDTH 15.8 % (11.5-14.5); WHITE BLOOD COUNT 9.9 K/uL (4.8-10.8)
[2017-11-29] MEDS: Prenatal Multivit/Folic Acid/Iron Tab PO SCH (10:00)
[2017-11-29] MEDS ORDERED: Multiple Vitamins Tab PO SCH (10:00)
--- NOTE | 2017-11-29 10:26 | OBPPN ---
Datetime: 11/29/2017 09:55 PP Pain Prov: Within normal limits PP Nausea Prov: Denies PP Flatus Prov: Yes PP BM Prov: No PP Breasts Prov: Normal PP Heart Prov: Normal PP Lungs Prov: Normal PP Abdomen/Uterus Prov: Normal PP Lochia Prov: Normal PP Vulva/Perineum Prov: Normal PP CVA Tenderness Prov: Normal PP Extremities Prov: Normal PP C/S Incision Prov: Not Applicable PP Progress Prov: Normal PP Comments Phys Exam Prov: Abdomen: Obese. Non distended. Soft. Fundus approx 28 weeks, firm, mobil e, non tender, deviated to the left. Mild lochia rubra Extremities: (+) ROM; no calf tenderness All other systems reviewed and are negative PP Progress Note Prov: Patient receive din room 461, seen and evaluated at approx 0755 hours . Ambulating to bathroom, voiding without difficulty. c/o back pain in the area of ep idrual placement; pain scale 10/10; relieved with percocet. Patient states is has been a bit difficu lt to walk, secondary to the pain. Denies headaches, dizziness, nausea or vomiting. P.E.: as above. Mildy obese, visibly uncomfortable. Awake, alert, oriented to time, person and pl lee. Pleasant and cooperative PPD#1 H/H 10.5/31. WBC 9.9. Rh(+) Assessment: PPD#1. 32 y.o. P3, S/P . afebrile, vital signs stable. Back pain: patien reassured this is fairly common. Encoraged to utilize the following: warm compress x 1 followed by ice leana s to the area up to three times a day. Patient with GERD; will give ultram for pain (can alternate wi th percocet). Patient also encouraged to ambulate. Patient expresed an understanding; her questions were answered. Patient is clinically stable. Plan: 1) Warm compress x 1 now 2) Cold compress TID 3) Continue percocet, PRN 4) Ultram 50 mg p.o. TID 5) Continue pepcid, TID 6) Anticipate discharge home, 11/30/17 Vital Signs Provider PP: Reviewed; Within Normal Limits
--- NOTE | 2017-11-29 16:29 | MRI ---
Date of service: 11/29/2017 PROCEDURE: MR LUMBAR SPINE WITHOUT CONTRAST HISTORY: rule out epidural abscess vs hematoma or spinal COMPARISON: None available. TECHNIQUE: Multiecho multiplanar sequences were performed through the lumbar spine without the use of intravenous contrast. FINDINGS: Normal lumbar lordosis. Vertebral body heights are preserved. Marrow signal unremarkable. Conus medullaris unremarkable at the level of T12/L1. Paraspinal soft tissues are unremarkable. T12-L1: No disc herniation, spinal canal stenosis or neural foraminal narrowing. L1-2: No disc herniation, spinal canal stenosis or neural foraminal narrowing. L2-3: No disc herniation, spinal canal stenosis or neural foraminal narrowing. L3-4: No disc herniation, spinal canal stenosis or neural foraminal narrowing. L4-5: No disc herniation, spinal canal stenosis or neural foraminal narrowing. L5-S1: No disc herniation, spinal canal stenosis or neural foraminal narrowing. OTHER FINDINGS: Foci of hypo intense signal within the epidural canal likely related to epidural anesthesia injection. IMPRESSION: Foci of hypo intense signal within the epidural canal likely related to epidural anesthesia injection. Otherwise, unremarkable non contrast enhanced MRI of the lumbar spine.
--- NOTE | 2017-11-29 19:23 | CP.PCM.PN ---
Subjective - Date & Time of Evaluation Date of Evaluation: 11/29/17 Time of Evaluation: 11:00 - Subjective Subjective: I was notified this morning by Ob warehouse operations manager Dr Duffy that patient complained of severe backache. I went to evaluate the patient via set up and charger via in demand [employer] [id number] at 11:21. Pt is post day 1 with intrathecal catheter, she delivered yesterday around before noon time. She is complaining of severe backache, that is radiating to anterior and posterior right thigh. The pain is about 8/10, constant, sharp, no shooting pains or electrical shocks. No numbness. When I saw the patient she was unable to lay on her back due to the pain. She was given ultram with some relieve to 6/10. Patient able to ambulate to bathroom with help. No involuntary urination or defecation reported. Back pain started yesterday. She also complained of positional headache. On exam she had excruciating pain on palpation. The motor strength was not impaired, sensation intact and also temperature intact. Dr Chavez had done the anesthesia for the vaginal delivery. I had a phone conversation with him about the details and difficulty of placing the catheter. Epidural was attempted in 2 levels, one time catheter was not threading well and was pulled out as per Dr Chavez tip intact. On the final try incidentaly the catheter was threaded in subarachnoid space and was used as a spinal catheter. After delivery catheter was removed , tip intact as per Dr Chavez. Because of excruciating back pain so severe to have the patient curl up in the bed, symptoms radiating to the leg and difficulty of placing the catheter suspicion for possible epidural hematoma was raised. MRI of spine was done which was negative for any pathology. Also the imaging was discussed with radiologist. Patient's wbc are within normal limits, no fever. Patient has PDPH, instructed to take lots of fluids, Fioricet prescribed. Will monitor the patient and will continue neuro checks. Patient instructed if any worsening of the symptoms to report right away. Objective - Vital Signs/Intake and Output Vital Signs (last 24 hours): Temp Pulse Resp BP Pulse Ox 97.5 F L 59 L 18 90/56 L 99 11/29/17 16:00 11/29/17 16:00 11/29/17 16:00 11/29/17 16:00 11/29/17 16:00 - Medications Medications: Current Medications Acetaminophen/Butalbital/Caffeine (Fioricet) 1 tab PO Q4 PRN PRN Reason: Headache Benzocaine/Menthol (Dermoplast 20%-0.5%) 0 ml TOP Q6 PRN PRN Reason: Perineal Discomfort Last Admin: 11/28/17 15:57 Dose: 1 ml Docusate Sodium (Colace) 100 mg PO DAILY [facility] [place] Last Admin: 11/29/17 15:43 Dose: Not Given Famotidine (Pepcid) 20 mg PO DAILY [facility] [place] Last Admin: 11/29/17 15:43 Dose: Not Given Multivit/Folic Acid/Iron () 1 tab PO DAILY [facility] [place] Last Admin: 11/29/17 10:00 Dose: 1 tab Tramadol HCl (Ultram) 50 mg PO TID [facility] [place] Last Admin: 11/29/17 18:29 Dose: Not Given - Labs Labs: 11/29/17 08:21 11/28/17 01:52
[2017-11-30 00:48] VITALS: RESP 20
[2017-11-30] MEDS: Apap-Butalbital-Caffeine 325-50-40mg Tab PO PRN ×2 (01:02→06:26)
[2017-11-30 08:17] VITALS: BP 110/70; O2SAT 98
[2017-11-30] MEDS: Prenatal Multivit/Folic Acid/Iron Tab PO SCH (09:26)
[2017-11-30] MEDS ORDERED: Lidocaine 4% (Laryng-O-Jet) Kit MM ONE (10:48)
--- NOTE | 2017-11-30 10:54 | OBPPN ---
Datetime: 11/30/2017 10:39 PP Pain Prov: Within normal limits PP Nausea Prov: Denies PP Flatus Prov: Yes PP BM Prov: No PP Breasts Prov: Not Done PP Heart Prov: Normal PP Lungs Prov: Normal PP Abdomen/Uterus Prov: Normal PP Lochia Prov: Normal PP Vulva/Perineum Prov: Normal PP CVA Tenderness Prov: Normal PP Extremities Prov: Normal PP C/S Incision Prov: Not Applicable PP Progress Prov: Normal PP Comments Phys Exam Prov: PP Impression Prov: Normal progression PP Plan Prov: Continue present management PP Impression Other Prov: Probable Spinal ANDERSON PP Progress Note Prov: C/O of severe frontal ANDERSON since yesterday and was evaluated by Anesthesiologis t conductor/brakeman for possible Spinal ANDERSON. Had an MRI that was negative and was given Fioricet and Hydration w ith no relieve, per patient States that today her pain is worse when getting out of bed, standing and/or ambulating. Nopain wh ile supine in bed Dr. Ha, Anesthesiologist conductor/brakeman contacted and will evaluate the patient. Hope to D/C patient home later if condition improve. IP PP Procedures: None Vital Signs Provider PP: Reviewed; Within Normal Limits Vital Signs Provider Details PP: Fundus firm and non-tender
--- NOTE | 2017-11-30 11:10 | CP.PCM.PN ---
Subjective - Date & Time of Evaluation Date of Evaluation: 11/30/17 Time of Evaluation: 11:00 - Subjective Subjective: Dr. Dao and I spoke at bedside with patient in [place], discussed with patient the placement of blood patch and sphenopalatin ganglion block for relief of headache, risks and benefits for both procedure discussed and patient refused both procedures. Patient noted to be sitting upright in bed and comfortable after having fioricet and ultram. Objective - Vital Signs/Intake and Output Vital Signs (last 24 hours): Temp Pulse Resp BP Pulse Ox 97.1 F L 62 20 110/70 98 11/30/17 08:16 11/30/17 08:16 11/30/17 08:16 11/30/17 08:16 11/30/17 08:16 - Medications Medications: Current Medications Acetaminophen/Butalbital/Caffeine (Fioricet) 1 tab PO Q4 PRN PRN Reason: Headache Last Admin: 11/30/17 06:26 Dose: 1 tab Benzocaine/Menthol (Dermoplast 20%-0.5%) 0 ml TOP Q6 PRN PRN Reason: Perineal Discomfort Last Admin: 11/28/17 15:57 Dose: 1 ml Docusate Sodium (Colace) 100 mg PO DAILY [facility] Last Admin: 11/30/17 09:26 Dose: Not Given Famotidine (Pepcid) 20 mg PO DAILY [facility] [place] Last Admin: 11/30/17 09:31 Dose: Not Given Multivit/Folic Acid/Iron () 1 tab PO DAILY [facility] [place] Last Admin: 11/30/17 09:26 Dose: 1 tab Tramadol HCl (Ultram) 50 mg PO TID [facility] [place] Last Admin: 11/30/17 09:31 Dose: 50 mg - Labs Labs: 11/29/17 08:21 11/28/17 01:52
--- NOTE | 2017-11-30 12:16 | OBPPN ---
Datetime: 11/30/2017 11:56 PP Pain Prov: Within normal limits PP Breasts Prov: Not Done PP Heart Prov: Normal PP Lungs Prov: Normal PP Abdomen/Uterus Prov: Normal PP Lochia Prov: Normal PP Vulva/Perineum Prov: Normal PP CVA Tenderness Prov: Normal PP Extremities Prov: Normal PP C/S Incision Prov: Not Applicable PP Progress Prov: Normal PP Comments Phys Exam Prov: PPD #2 S/P with an Epidural for Anesthesia Apparently patient developed a Spinal ANDERSON and upon my visit earlier today, she was in excrutiating pain and told me that Fioricet did not help Anesthesiologist saw her and offered a Blood Patch and she refused. He then offered her a new tech nique with transnasal Lidocaine, but After explaining the procedure, in [place]ian by myself with Dr. Maximino delgado, Anesthesiologist, she also declined. She then stated that she received Ultram po at about 10:30 AM and her pain was significantly better No other complaints and will D/C home with instructions and Rx for Ultram Will follow up in Clinic in 7-10 days or prior if needed. Will continue PNV and Fe as outpatient Advised to increase po water and Fiber in diet. PP Progress Note Prov: PPD #2 S/P with an Epidural for Anesthesia Apparently patient developed a Spinal ANDERSON and upon my visit earlier today, she was in excrutiating pain and told me that Fioricet did not help Anesthesiologist saw her and offered a Blood Patch and she refused. He then offered her a new tech nique with transnasal Lidocaine, but After explaining the procedure, in [place]ian by myself with Dr. Maximino delgado, Anesthesiologist, she also declined. She then stated that she received Ultram po at about 10:30 AM and her pain was significantly better No other complaints and will D/C home with instructions and Rx for Ultram Will follow up in Clinic in 7-10 days or prior if needed. Will continue PNV and Fe as outpatient Advised to increase po water and Fiber in diet. Vital Signs Provider PP: Reviewed; Within Normal Limits
--- NOTE | 2017-11-30 12:18 | OBDCSUM ---
Datetime: 11/30/2017 12:12 Discharged to, Provider: Home Follow up at, Provider: [facility] Disch Instr Activity: Normal activity; May Shower Disch Instr Diet: Regular Discharge Diet restrict Prov: none Discharge Instructions, Provider: Routine instructions given Discharge Diagnosis, Provider: Term Delivered Discharge Time: 11/30/2017 12:13 Follow up in weeks, Provider: 12/04/17 Disch Referrals: None Contraception discussed, Prov: Yes Disch Activity Restrictions: No exercising; No lifting; No sexual activity; Nothing in vagina - Inte rcourse, tampons, douche Discharge Comment, Provider: PPD #2 S/P with an Epidural for Anesthesia Probable Spinal Hidalgo and declined treatment by Anesthesia. Pt stated that pain was significantly better with Ultram and request a Rx to go home with it. No other complaints and will D/C home with instructions and Rx for Ultram Will follow up in Clinic in 7-10 days or prior if needed. Will continue PNV and Fe as outpatient Advised to increase po water and Fiber in diet. Contraception after Delivery: Undecided
[2017-11-30 19:42] VITALS: PULSE 60; TEMP 97.7
== END 2017-11-30 14:30 | disposition home or self-care (01) | DRG 775 ==
LOC: C.EROB → C.4D 00:01 → C.4M 14:45
PROVIDERS: ADMIT Obstetrics & Gynecology; ATTEND Obstetrics & Gynecology
PROC: 10E0XZZ Delivery of Products of Conception, External Approach (ICD-10-PCS; principal; 2017-11-28)
PROC: 0HQ9XZZ Repair Perineum Skin, External Approach (ICD-10-PCS; 2017-11-28)
DX: O99.824 Streptococcus B carrier state complicating childbirth (principal); O99.214 Obesity complicating childbirth; O70.0 First degree perineal laceration during delivery; G97.1 Other reaction to spinal and lumbar puncture; O99.62 Diseases of the digestive system complicating childbirth; K21.9 Gastro-esophageal reflux disease without esophagitis; E66.9 Obesity, unspecified; Y84.4 Aspiration of fluid as the cause of abnormal reaction of the patient, or of later complication, without mention of misadventure at the time of the procedure; Z3A.38 38 weeks gestation of pregnancy; Z37.0 Single live birth